=== PATIENT | female | born 1980 | race Caucasian/White ===

== ENCOUNTER 2016-06-06 10:05 | Emergency (ER) | payer OTHER ==
[2016-06-06] MEDS ORDERED: LORazepam 2 MG/ML VIAL (J2060) As Ordered ONE (10:49)
[2016-06-06 11:18] LABS: MEAN CORPUSCULAR HEMOGLOBIN 31.7 pg (27.0-33.0); MEAN CORPUSCULAR HGB CONC 33.8 g/dl (32.0-36.5); MEAN CORPUSCULAR VOLUME 93.8 fl (80.0-96.0); RED CELL DISTRIBUTION WIDTH 13.2 % (11.5-14.5); WHITE BLOOD COUNT 15.2 K/mm3 (4.0-10.0)
[2016-06-06 11:32] LABS: CONTROL LINE HCG INT CTR LINE PRESENT
[2016-06-06 11:39] LABS: AMPHETAMINES LEVEL URINE NEGATIVE (NEGATIVE); BENZODIAZEPINES URINE NEGATIVE (NEGATIVE); COCAINE METABOLITE URINE NEGATIVE (NEGATIVE); CONTROL LINE INT CTR LINE PRESENT; METHADONE URINE NEGATIVE (NEGATIVE); OPIATES URINE NEGATIVE (NEGATIVE); TRICYCLIC ANTIDEPRESS URINE NEGATIVE (NEGATIVE)
[2016-06-06 11:48] LABS: ALBUMIN 4.3 GM/DL (3.2-5.2); ALBUMIN/GLOBULIN RATIO 1.26 (1.00-1.93); ALKALINE PHOSPHATASE 66 U/L (45-117); ALT/SGPT 20 U/L (12-78); ANION GAP 12 MEQ/L (8-16); AST/SGOT 19 U/L (15-37); BILIRUBIN,DIRECT < 0.1 MG/DL (0.0-0.2); BILIRUBIN,TOTAL 0.2 MG/DL (0.2-1.0); BLOOD UREA NITROGEN 15 MG/DL (7-18); CALCIUM LEVEL 8.6 MG/DL (8.5-10.1); CARBON DIOXIDE LEVEL 24 MEQ/L (21-32); CHLORIDE LEVEL 109 MEQ/L (98-107); CREATININE FOR GFR 0.84 MG/DL (0.55-1.02); GLOMERULAR FILTRATION RATE > 60.0 (>60); GLUCOSE, FASTING 88 MG/DL (70-105); SODIUM LEVEL 145 MEQ/L (136-145); TOTAL PROTEIN 7.7 GM/DL (6.4-8.2)
[2016-06-06] MEDS ORDERED: NICOTINE 21MG/24HR 1 EA TRANSDERMAL As Ordered ONE (11:58)
--- NOTE | 2016-06-06 15:59 | EDDOCDS ---
Nurse's Notes [facility] Name: Chayo Weems Age: 36 yrs Sex: Female : 1980 Arrival Date: 06/06/2016 Time: 10:05 Bed 4 Private MD: SMITH Alberts Diagnosis: Alcohol abuse with intoxication Presentation: 06/06 10:10 Presenting complaint: EMS states: found by passer by sitting in vehicle in parking lot, jjr altered LOC, pt reports drinking whiskey since approx 0530 am and has had 2 doses of gabapentin, FSBS 110. Adult Sepsis Screening: Patient has new or worsening altered mentation (1 point). Patient's respiratory rate is less than 22. Systolic blood pressure is greater than 100. Patient has a qSOFA score of 1- Negative Sepsis Screen. Suicide/Homicide risk assessment- Unable to assess, the patient has an altered level of consciousness. Status: Patient is not a office services representative or dependent. Transition of care: patient was not received from another setting of care. 10:10 Acuity: MARTINA Level 3 jjr 10:10 Method Of Arrival: Ambulance jjr Triage Assessment: 11:21 General: Appears in no apparent distress, Behavior is restless. Pain: Denies pain. Pt jjr Declines HIV testing. Neurological: Level of Consciousness is awake, obeys commands, Cribbing Setter are equal bilaterally Moves all extremities. Speech is slurred. MARGIN ANALYST: 10:18 LMP N/A - Irregular menses jjr Historical: - Allergies: no known allergies; - Home Meds: 1. gabapentin 800 mg Oral tab qid (Last dose: 06/06/2016 07:00) 2. cetirizine 10 mg oral tab 1 tab once daily - PMHx: Anxiety; Seizures; Seasonal Allergies; - PSHx: Cholecystectomy; Appendectomy; - Social history: Smoking status: Patient uses tobacco products, current every day smoker. No barriers to communication noted, The patient speaks fluent Maori. - : The pt / caregiver states he / she is not on anticoagulants. Home medication list is obtained from the patient. - Exposure Risk Screening:: None identified. Screenin:08 Fall Risk. jjr 12:10 Screening information is obtained from family members. Fall risk: At risk due to jjr apparent cognitive impairment, The following interventions are performed due to a positive Fall Risk Screen: added to special handling. Assistance ADL's: requires no assistance with activities of daily living. Abuse/DV Screen: The patient / caregiver reports he/she is: not in a situation that causes fear, pain or injury. Nutritional screening: No deficits noted. Advance Directives: There is no active DNR order. home support is adequate. Assessment: 11:23 General: pt stood up pulling monitor leads off and proceeded to walk towards then jjr ran down manriquez ending at shut ambulance bay doors, pt assisted back to room by Douglas and Heidi, pt continues to make statements about leaving department. Cardiovascular: Rhythm is sinus rhythm. Respiratory: No deficits noted. Derm: No deficits noted. 11:53 General:. jjr 12:09 General: prior to falling asleep pt removed saline lock from left hand, provider aware, jjr verified 2 current medications. Cardiovascular: Rhythm is sinus tachycardia. Respiratory: Airway is patent Respiratory effort is even, unlabored, Respiratory pattern is regular. Derm: Skin is pink, warm & dry. 12:11 General: bed alarm placed on patient. jjr 12:40 General: Appears to be sleeping. Cardiovascular: Rhythm is sinus rhythm. Respiratory: jjr Airway is patent Respiratory effort is even, unlabored, Respiratory pattern is regular. 13:40 General: Appears to be sleeping. jjr 15:10 General: Appears in no apparent distress, found in manriquez by staff, returned to room, jjr pt's phoned for transportation home. Vital Signs: 10:13 Temp 98.3(TE); jjr 10:17 BP 137 / 100; Pulse 109; Temp 98.3; Pulse Ox 100% on R/A; Weight 63.5 kg; Height 5 ft. rn1 3 in. (160.02 cm); Pain 2/10; 10:28 BP 143 / 83 (auto/); jjr 10:29 Pulse 104 MON; Resp 18; jjr 12:01 BP 121 / 76 (auto/); jjr 12:02 Pulse 102 MON; Resp 18; jjr 12:22 BP 100 / 60 (auto/); jjr 12:22 Pulse 86 MON; Resp 18; jjr 12:54 BP 98 / 59 (auto/); jjr 12:54 Pulse 84 MON; jjr 13:24 BP 109 / 72 (auto/); dy 14:17 BP 101 / 60 (auto/); dy 15:46 BP 121 / 76; Pulse 102; Resp 18; Temp 98.4(O); Pulse Ox 96% on R/A; jjr 10:17 Body Mass Index 24.80 (63.50 kg, 160.02 cm) rn1 Vitals: 10:13 Log In Time N/A - ambulance arrival. jjr ED Course: 10:07 Patient visited by Karen Solis, Anesthesiology Teacher. lbd 10:07 SMITH Alberts is Private Physician. lbd 10:07 Chayo Singh, WILD is Primary Nurse. jjr 10:07 Patient moved to Waiting lbd 10:07 Patient moved to 4 jjr 10:10 Delbert Cosme MD is Attending Physician. br1 10:12 Triage Initiated jjr 10:26 Patient visited by Delbert Cosme MD. br1 11:22 The patient / caregiver is instructed regarding the plan of care and ED course. Cardiac jjr monitor on. Pulse ox on. NIBP on. 11:22 Missed attempts: 22 gauge X 1 in right hand, Bleeding controlled, band aid applied, jjr catheter tip intact. 11:22 Inserted saline lock: 22 gauge in left hand. Labs drawn. (by ED staff). Sent per order jjr to lab. Urine collected. Clean catch specimen. Urine specimen sent to lab. 11:25 Patient visited by Chayo Singh RN. jjr 11:27 Patient visited by Chayo Singh RN. jjr 11:51 patient is refusing ekg at the moment will try again in a bit after the medication has jbSteph had time to start working dr Ba pina. 11:52 Patient visited by Reva Lu PCA. jb5 12:07 Patient visited by Reva Lu PCA. jb5 12:07 patient is inclined and resting at the moment Nurse Chayo pina bed alarm is iin jb5 place. patient is comfortable. 12:08 Patient visited by Reva Lu PCA. jb5 12:11 Patient visited by Chayo Singh RN. jjr 12:24 Patient visited by Reva Lu PCA. jb5 12:24 Patient has correct armband on for positive identification. Placed in gown. Bed in low jb5 position. Call light in reach. Side rails up X2. Security observing. patient sleeping. 12:25 Patient visited by Reva Lu PCA. jb5 12:37 Patient visited by Reva Lu PCA. jb5 12:37 Verbal reassurance given. patient asleep. jb5 12:40 Patient visited by Chayo Singh RN. jjr 12:53 Patient visited by Reva Lu PCA. jb5 12:53 Security observing. patient asleep. jb5 13:08 Patient visited by Reva Lu PCA. jb5 13:08 Security observing. obtained EKG while patient was asleep. jb5 13:08 EKG done. (by ED staff). Reviewed by Delbert Cosme MD. jb5 13:24 Property removed, inventory done, secured in belongings bag- placed in locked locker. dpm Placed in locker 7. unknown who changed pt. Inventory was done 3 hours after pt was changed. belongings were left at charge nurse until nurse brought property back. 13:29 patient woke up ripping all leads off her and said she feels weird is now curling up jb5 into a ball on the bed nurse Chayo pina . 13:30 Property secured in secure belongings bag, Secure bag Number [id number], placed in ED safe.dpm 13:36 Patient visited by Reva Lu PCA. jb5 13:40 Security observing. patient asleep. jb5 13:41 Patient visited by Reva Lu PCA. jb5 13:48 Patient visited by Reva Lu PCA. jb5 14:14 Patient visited by Reva Lu PCA. jb5 14:15 Patient visited by Reva Lu PCA. jb5 14:34 Patient visited by Reva Lu PCA. jb5 14:34 Patient visited by Reva Lu PCA. jb5 14:34 Security observing. patient asleep. jb5 14:50 Patient visited by Luis Cheek RN. dy 14:52 Security observing. patient turned over and is asleep again. jb5 14:53 Patient visited by Reva Lu PCA. jb5 15:13 Patient visited by Chayo Singh RN. jjr 15:21 Patient visited by Reva Lu PCA. jb5 15:21 Diet tray given. PO fluids given. jb5 15:45 Patient visited by Reva Lu PCA. jb5 15:45 in with patient. jb5 15:46 Patient visited by Reva Lu PCA. jb5 15:48 [facility] is Referral Physician. br1 15:51 Patient name changed from Chayo\S\\S\Weems\S\ to Chayo\S\ \S\Weems. EDMS 15:52 [facility] Payment Agreement was scanned into MyEve[employer] and attached to record. zo 15:58 No procedures done that require assistance. jjr Restraints: 11:26 Restraint order obtained from Chayo Singh RN jjr 11:26 Implementation: The following less restrictive methods were implemented: calming interaction with one-on-one intervention, Physician assessed patient at 11:00. The patient was given an explanation of the restraint protocol, Restraints applied at 11:05 Patient was restrained with chemical restraint, Restraints were applied because patient is a danger to self. 11:26 Notification of restraint use: ED physician, Charge Nurse. 11:26 Vital Signs: See Trend VS for complete VS information 15:58 Patient was given chemical restraint. No order to discontinue required. jjr Administered Medications: 10:52 Drug: LORazepam 2 mg [lorazepam 2 mg/mL injection solution (1 mL)] Route: IM; Site: jjr right deltoid; 11:21 Drug: NS 0.9% 1000 ml [sodium chloride 0.9 % intravenous solution] Route: IV; Rate: 150 jjr mL/hr; Site: left hand; Order Results: Lab Order: Acetaminophen Level; SPEC'M 06/06/16 11:08 Test: ACETAMINOPHEN LEVEL; Value: < 2.0; Range: 10.0-30.0; Abnormal: Below low normal; Units: UG/ML; Status: F Lab Order: Basic Metabolic Profile; SPEC'M 06/06/16 11:08 Test: GLUCOSE, FASTING; Value: 88; Range: 70-105; Units: MG/DL; Status: F Test: BLOOD UREA NITROGEN; Value: 15; Range: 7-18; Units: MG/DL; Status: F Test: CREATININE FOR GFR; Value: 0.84; Range: 0.55-1.02; Units: MG/DL; Status: F Test: SODIUM LEVEL; Range: 136-145; Units: MEQ/L; Status: I Test: POTASSIUM SERUM; Range: 3.5-5.1; Units: MEQ/L; Status: I Test: CHLORIDE LEVEL; Range: 98-107; Units: MEQ/L; Status: I Test: CARBON DIOXIDE LEVEL; Range: 21-32; Units: MEQ/L; Status: I Test: ANION GAP; Range: 8-16; Units: MEQ/L; Status: I Test: CALCIUM LEVEL; Range: 8.5-10.1; Units: MG/DL; Status: I Test: GLOMERULAR FILTRATION RATE; Value: > 60.0; Range: >60; Status: F Test: SODIUM LEVEL; Value: 145; Range: 136-145; Units: MEQ/L; Status: F Test: POTASSIUM SERUM; Value: 4.0; Range: 3.5-5.1; Units: MEQ/L; Status: F Test: CHLORIDE LEVEL; Value: 109; Range: 98-107; Abnormal: Above high normal; Units: MEQ/L; Status: F Test: CARBON DIOXIDE LEVEL; Value: 24; Range: 21-32; Units: MEQ/L; Status: F Test: ANION GAP; Value: 12; Range: 8-16; Units: MEQ/L; Status: F Test: CALCIUM LEVEL; Value: 8.6; Range: 8.5-10.1; Units: MG/DL; Status: F Test Note: ; Units are mL/min/1.73 m2 Chronic Kidney Disease Staging per NKF: Stage I & II GFR >=60 Normal to Mildly Decreased Stage III GFR 30-59 Moderately Decreased Stage IV GFR 15-29 Severely Decreased Stage V GFR <15 Very Little GFR Left ESRD GFR <15 on C2 TACTICAL ANALYSIS TECHNICIAN Lab Order: Complete Blood Count; SPEC'M 06/06/16 11:08 Test: WHITE BLOOD COUNT; Value: 15.2; Range: 4.0-10.0; Abnormal: Above high normal; Units: K/mm3; Status: F Test: RED BLOOD COUNT; Value: 4.23; Range: 4.00-5.40; Units: M/mm3; Status: F Test: HEMOGLOBIN; Value: 13.4; Range: 12.0-16.0; Units: g/dl; Status: F Test: HEMATOCRIT; Value: 39.7; Range: 36.0-47.0; Units: %; Status: F Test: MEAN CORPUSCULAR VOLUME; Value: 93.8; Range: 80.0-96.0; Units: fl; Status: F Test: MEAN CORPUSCULAR HEMOGLOBIN; Value: 31.7; Range: 27.0-33.0; Units: pg; Status: F Test: MEAN CORPUSCULAR HGB CONC; Value: 33.8; Range: 32.0-36.5; Units: g/dl; Status: F Test: RED CELL DISTRIBUTION WIDTH; Value: 13.2; Range: 11.5-14.5; Units: %; Status: F Test: PLATELET COUNT, AUTOMATED; Value: 449; Range: 150-450; Units: k/mm3; Status: F Lab Order: Drug Eval Toxicology ED Only; SPEC'M 06/06/16 11:08 Test: AMPHETAMINES LEVEL URINE; Value: NEGATIVE; Range: NEGATIVE; Status: F Test: BARBITURATES URINE; Value: NEGATIVE; Range: NEGATIVE; Status: F Test: BENZODIAZEPINES URINE; Value: NEGATIVE; Range: NEGATIVE; Status: F Test: CANNABINOIDS URINE; Value: NEGATIVE; Range: NEGATIVE; Status: F Test: COCAINE METABOLITE URINE; Value: NEGATIVE; Range: NEGATIVE; Status: F Test: METHADONE URINE; Value: NEGATIVE; Range: NEGATIVE; Status: F Test: OPIATES URINE; Value: NEGATIVE; Range: NEGATIVE; Status: F Test: TRICYCLIC ANTIDEPRESS URINE; Value: NEGATIVE; Range: NEGATIVE; Status: F Test Note: ; ALL PRESUMPTIVE POSITIVE FINDINGS ARE UNCONFIRMED NORMAL VALUES THRESHOLD IN NG/ML AMPHETAMINES 1000 METHAMPHETAMINES 1000 BARBITURATES 300 BENZODIAZEPINES 300 CANNABINOIDS (THC) 50 COCAINE METABOLITE 300 METHADONE 300 OPIATES 300 PHENCYCLIDINE 25 TRICYCLIC ANTIDEPRESSANTS 1000 RESULTS ARE FOR MEDICAL PURPOSES ONLY. ALL URINE SPECIMENS WILL BE SAVED FOR 3 DAYS. IF CONFIRMATION OF A PRESUMPTIVE POSTIVE SCREEN RESULT IS DESIRED, CALL CHEMISTRY ([phone]) AND REQUEST URINE TO BE SENT TO REFERENCE LAB. FOR A LIST OF CLOSELY RELATED COMPOUNDS PLEASE CALL THE LAB. Lab Order: Ethyl Alcohol (ethanol); SPEC'M 06/06/16 11:08 Test: ETHYL ALCOHOL (ETHANOL); Value: 0.403; Range: 0.000-0.010; Abnormal: Above high normal; Units: %; Status: F Lab Order: HCG,Serum Qualitative; SPEC'M 06/06/16 11:08 Test: HCG, SERUM QUALITATIVE; Value: NEGATIVE; Range: NEGATIVE; Status: F Lab Order: Liver Profile; SPEC' 06/06/16 11:08 Test: AST/SGOT; Value: 19; Range: 15-37; Units: U/L; Status: F Test: ALT/SGPT; Value: 20; Range: 12-78; Units: U/L; Status: F Test: ALKALINE PHOSPHATASE; Value: 66; Range: 45-117; Units: U/L; Status: F Test: BILIRUBIN,TOTAL; Value: 0.2; Range: 0.2-1.0; Units: MG/DL; Status: F Test: BILIRUBIN,DIRECT; Value: < 0.1; Range: 0.0-0.2; Units: MG/DL; Status: F Test: TOTAL PROTEIN; Value: 7.7; Range: 6.4-8.2; Units: GM/DL; Status: F Test: ALBUMIN; Value: 4.3; Range: 3.2-5.2; Units: GM/DL; Status: F Test: ALBUMIN/GLOBULIN RATIO; Value: 1.26; Range: 1.00-1.93; Status: F Lab Order: Salicylate Level; SPEC' 06/06/16 11:08 Test: SALICYLATE LEVEL; Value: 2.2; Range: 5.0-30.0; Abnormal: Below low normal; Units: MG/DL; Status: F Lab Order: Thyroid Stimulating Hormone; SPEC'M 06/06/16 11:08 Test: THYROID STIMULATING HORMONE; Value: 1.070; Range: 0.358-3.740; Units: uIU/ML; Status: F Outcome: 15:48 Discharge ordered by Provider. br1 15:57 Discharge Assessment: patient administered narcotics - no. The following High Risk jjr Discharge criteria are identified: Yes, PFS involved. Discharged to home ambulatory, with significant other. Condition: stable. Discharge instructions given to patient, significant other, Instructed on discharge instructions, follow up and referral plans. Demonstrated understanding of instructions. No special radiology studies were completed. 15:58 Patient left the ED. [facility] Signatures: Dispatcher [employer] EDMS Karen Solis, Anesthesiology Teacher Unit lbd Luis Cheek, WILD RN Reva Francois, MUSIC PROFESSIONALS MUSIC PROFESSIONALS jb5 Dionisio Lemus Brian, MD MD br1 Chayo Singh RN RN Ezequiel Astudillo dpm, Robert rn1 Corrections: (The following items were deleted from the chart) 10:13 10:10 Presenting complaint: EMS states: found by passer by sitting in vehicle in [facility] parking lot, altered LOC, pt reports drinking whiskey since approx 0530 am and has had 2 doses of gabapentin [facility] MTDD
--- NOTE | 2016-06-06 15:59 | EDDOCDS ---
Physician Documentation [facility] Name: Chayo Weems Age: 36 yrs Sex: Female : 1980 Arrival Date: 06/06/2016 Time: 10:05 Bed 4 Private MD: SMITH Alberts Disposition: 06/06/16 15:48 Discharged to Home/Self Care. Impression: Alcohol abuse with intoxication. - Condition is Stable. - Discharge Instructions: Alcohol Intoxication. - Medication Reconciliation, Local Pharmacy Hours form. - Follow up: SMITH Alberts; When: 2 - 3 days; Reason: Recheck today's complaints. - Problem is new. - Symptoms have improved. - Notes: You were seen in the ED for altered mental status and were found to be intoxicated. You may return home in the care of your . Call your doctor to arrange recheck this week. Refrain from alcohol in the future. Return to the ED for any pain, worsening confusion, loss of consciousness, trouble breathing, or any other concerns. Historical: - Allergies: no known allergies; - Home Meds: 1. gabapentin 800 mg Oral tab qid (Last dose: 06/06/2016 07:00) 2. cetirizine 10 mg oral tab 1 tab once daily - PMHx: Anxiety; Seizures; Seasonal Allergies; - PSHx: Cholecystectomy; Appendectomy; - Social history: Smoking status: Patient uses tobacco products, current every day smoker. No barriers to communication noted, The patient speaks fluent Greenlandic. - : The pt / caregiver states he / she is not on anticoagulants. Home medication list is obtained from the patient. - Exposure Risk Screening:: None identified. 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 3 in. (160.02 cm); Pain 2/10; 10:28 BP 143 / 83 (auto/); jjr 10:29 Pulse 104 MON; Resp 18; jjr 12:01 BP 121 / 76 (auto/); jjr 12:02 Pulse 102 MON; Resp 18; jjr 12:22 BP 100 / 60 (auto/); jjr 12:22 Pulse 86 MON; Resp 18; jjr 12:54 BP 98 / 59 (auto/); jjr 12:54 Pulse 84 MON; jjr 13:24 BP 109 / 72 (auto/); dy 14:17 BP 101 / 60 (auto/); dy 15:46 BP 121 / 76; Pulse 102; Resp 18; Temp 98.4(O); Pulse Ox 96% on R/A; jjr 10:17 Body Mass Index 24.80 (63.50 kg, 160.02 cm) rn1 MDM: 10:26 Consult PFS/PSA/Small Engine Technician ordered. br1 10:26 Consult PFS/PSA/Small Engine Technician: Patient's case requires discussion with on-call br1 Psychiatrist ordered. 10:26 PSA/PFS to call Nursing Experimental Rocketsled Mechanic, to enter patient data on [place] Safe Act if patient br1 involuntarily admitted or transferred for SI or HI ordered. 10:26 Confirm accurate psychiatric medication list and times of last dosage ordered. br1 10:26 Detain Pt Until Medically/PFS Cleared ordered. br1 10:26 IV Saline Lock ordered. br1 10:27 Misc. Nursing Order ordered. br1 10:27 Recheck B/P ordered. br1 10:27 Marble Ceiling Installer/Pulse Ox/q 30 min VS ordered. br1 10:27 NS 0.9% 1000 ml IV at 150 mL/hr continuous ordered. br1 10:28 Acetaminophen Level Ordered. EDMS 10:28 Basic Metabolic Profile Ordered. EDMS 10:28 Complete Blood Count Ordered. EDMS 10:28 Drug Eval Toxicology ED Only Ordered. EDMS 10:28 Ethyl Alcohol (ethanol) Ordered. EDMS 10:28 HCG,Serum Qualitative Ordered. EDMS 10:28 Liver Profile Ordered. EDMS 10:28 Salicylate Level Ordered. EDMS 10:28 Thyroid Stimulating Hormone Ordered. EDMS 10:28 ECG WITH READING ER PHYS+CARDIAG ordered. EDMS 10:49 LORazepam 2 mg IM once; prn agitation ordered. br1 10:50 Restraints, Adult: Chemical - Meds as ordered (poses imminent danger of interfering br1 with medical interventions). May use manual restraints to ensure safe admin. of meds. Pt. monitoring for min. of 2 hrs per RN policy. ordered. 14:22 Acetaminophen Level Reviewed. br1 14:22 Basic Metabolic Profile Reviewed. br1 14:22 Complete Blood Count Reviewed. br1 14:22 Ethyl Alcohol (ethanol) Reviewed. br1 14:22 Salicylate Level Reviewed. br1 14:22 Drug Eval Toxicology ED Only Reviewed. br1 14:22 HCG,Serum Qualitative Reviewed. br1 14:22 Liver Profile Reviewed. br1 14:22 Thyroid Stimulating Hormone Reviewed. br1 14:24 Recheck B/P ordered. br1 15:45 PSA/PFS to call Nursing Experimental Rocketsled Mechanic, to enter patient data [place] Safe [place] if patient jjr involuntarily admitted or transferred for SI or HI complete. 15:45 Consult PFS/PSA/Small Engine Technician: Patient's case requires discussion with on-call jjr Psychiatrist complete. 15:46 Consult PFS/PSA/Small Engine Technician complete. jjr 15:52 Financial registration complete. zo 15:52 [facility] Payment Agreement was scanned into [employer] and attached to record. zo Administered Medications: 10:52 Drug: LORazepam 2 mg [lorazepam 2 mg/mL injection solution (1 mL)] Route: IM; Site: jjr right deltoid; 11:21 Drug: NS 0.9% 1000 ml [sodium chloride 0.9 % intravenous solution] Route: IV; Rate: 150 jjr mL/hr; Site: left hand; Signatures: Dispatcher [employer] Dionisio Benedict Brian, MD MD br1 Chyao Singh RN RN jjr The chart was reviewed and I authenticate all verbal orders and agree with the evaluation and treatment provided.Attachments: 15:52 [facility] Payment Agreement zo MTDD
--- NOTE | 2016-06-07 08:07 | ECGEPIP ---
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
--- NOTE | 2016-06-08 16:59 | EDDOCDS ---
Nurse's Notes [facility] Name: Pavan Weems Age: 36 yrs Sex: Female : 1980 Arrival Date: 06/06/2016 Time: 10:05 Bed 4 Private MD: SMITH Alberts Diagnosis: Alcohol abuse with intoxication Presentation: 06/06 10:10 Presenting complaint: EMS states: found by passer by sitting in vehicle in parking lot, jjr altered LOC, pt reports drinking whiskey since approx 0530 am and has had 2 doses of gabapentin, FSBS 110. Adult Sepsis Screening: Patient has new or worsening altered mentation (1 point). Patient's respiratory rate is less than 22. Systolic blood pressure is greater than 100. Patient has a qSOFA score of 1- Negative Sepsis Screen. Suicide/Homicide risk assessment- Unable to assess, the patient has an altered level of consciousness. Status: Patient is not a surgical services asst or dependent. Transition of care: patient was not received from another setting of care. 10:10 Acuity: MARTINA Level 3 jjr 10:10 Method Of Arrival: Ambulance jjr Triage Assessment: 11:21 General: Appears in no apparent distress, Behavior is restless. Pain: Denies pain. Pt jjr Declines HIV testing. Neurological: Level of Consciousness is awake, obeys commands, Microbiology Manager are equal bilaterally Moves all extremities. Speech is slurred. DECONTAMINATOR: 10:18 LMP N/A - Irregular menses jjr Historical: - Allergies: no known allergies; - Home Meds: 1. gabapentin 800 mg Oral tab qid (Last dose: 06/06/2016 07:00) 2. cetirizine 10 mg oral tab 1 tab once daily - PMHx: Anxiety; Seizures; Seasonal Allergies; - PSHx: Cholecystectomy; Appendectomy; - Social history: Smoking status: Patient uses tobacco products, current every day smoker. No barriers to communication noted, The patient speaks fluent Irish. - : The pt / caregiver states he / she is not on anticoagulants. Home medication list is obtained from the patient. - Exposure Risk Screening:: None identified. Screenin:08 Fall Risk. jjr 12:10 Screening information is obtained from family members. Fall risk: At risk due to jjr apparent cognitive impairment, The following interventions are performed due to a positive Fall Risk Screen: added to special handling. Assistance ADL's: requires no assistance with activities of daily living. Abuse/DV Screen: The patient / caregiver reports he/she is: not in a situation that causes fear, pain or injury. Nutritional screening: No deficits noted. Advance Directives: There is no active DNR order. home support is adequate. Assessment: 11:23 General: pt stood up pulling monitor leads off and proceeded to walk towards then jjr ran down manriquez ending at shut ambulance bay doors, pt assisted back to room by Douglas and Heidi, pt continues to make statements about leaving department. Cardiovascular: Rhythm is sinus rhythm. Respiratory: No deficits noted. Derm: No deficits noted. 11:53 General:. jjr 12:09 General: prior to falling asleep pt removed saline lock from left hand, provider aware, jjr verified 2 current medications. Cardiovascular: Rhythm is sinus tachycardia. Respiratory: Airway is patent Respiratory effort is even, unlabored, Respiratory pattern is regular. Derm: Skin is pink, warm & dry. 12:11 General: bed alarm placed on patient. jjr 12:40 General: Appears to be sleeping. Cardiovascular: Rhythm is sinus rhythm. Respiratory: jjr Airway is patent Respiratory effort is even, unlabored, Respiratory pattern is regular. 13:40 General: Appears to be sleeping. jjr 15:10 General: Appears in no apparent distress, found in manriquez by staff, returned to room, jjr pt's phoned for transportation home. Vital Signs: 10:13 Temp 98.3(TE); jjr 10:17 BP 137 / 100; Pulse 109; Temp 98.3; Pulse Ox 100% on R/A; Weight 63.5 kg; Height 5 ft. rn1 3 in. (160.02 cm); Pain 2/10; 10:28 BP 143 / 83 (auto/); jjr 10:29 Pulse 104 MON; Resp 18; jjr 12:01 BP 121 / 76 (auto/); jjr 12:02 Pulse 102 MON; Resp 18; jjr 12:22 BP 100 / 60 (auto/); jjr 12:22 Pulse 86 MON; Resp 18; jjr 12:54 BP 98 / 59 (auto/); jjr 12:54 Pulse 84 MON; jjr 13:24 BP 109 / 72 (auto/); dy 14:17 BP 101 / 60 (auto/); dy 15:46 BP 121 / 76; Pulse 102; Resp 18; Temp 98.4(O); Pulse Ox 96% on R/A; jjr 10:17 Body Mass Index 24.80 (63.50 kg, 160.02 cm) rn1 Vitals: 10:13 Log In Time N/A - ambulance arrival. jjr ED Course: 10:07 Patient visited by Karen Solis, Industrial Organization Manager. lbd 10:07 SMITH Alberts is Private Physician. lbd 10:07 Pavan Singh, WILD is Primary Nurse. jjr 10:07 Patient moved to Waiting lbd 10:07 Patient moved to 4 jjr 10:10 Lenka Cosme MD is Attending Physician. br1 10:12 Triage Initiated jjr 10:26 Patient visited by Lenka Cosme MD. br1 11:22 The patient / caregiver is instructed regarding the plan of care and ED course. Cardiac jjr monitor on. Pulse ox on. NIBP on. 11:22 Missed attempts: 22 gauge X 1 in right hand, Bleeding controlled, band aid applied, jjr catheter tip intact. 11:22 Inserted saline lock: 22 gauge in left hand. Labs drawn. (by ED staff). Sent per order jjr to lab. Urine collected. Clean catch specimen. Urine specimen sent to lab. 11:25 Patient visited by Pavan Singh RN. jjr 11:27 Patient visited by Pavan Singh RN. jjr 11:51 patient is refusing ekg at the moment will try again in a bit after the medication has jbSteph had time to start working dr Ba pina. 11:52 Patient visited by Reva Lu PCA. jb5 12:07 Patient visited by Reva Lu PCA. jb5 12:07 patient is inclined and resting at the moment Nurse Pavan pina bed alarm is iin jb5 place. patient is comfortable. 12:08 Patient visited by Reva Lu PCA. jb5 12:11 Patient visited by Pavan Singh RN. jjr 12:24 Patient visited by Reva Lu PCA. jb5 12:24 Patient has correct armband on for positive identification. Placed in gown. Bed in low jb5 position. Call light in reach. Side rails up X2. Security observing. patient sleeping. 12:25 Patient visited by Reva Lu PCA. jb5 12:37 Patient visited by Reva Lu PCA. jb5 12:37 Verbal reassurance given. patient asleep. jb5 12:40 Patient visited by Pavan Singh RN. jjr 12:53 Patient visited by Reva Lu PCA. jb5 12:53 Security observing. patient asleep. jb5 13:08 Patient visited by Reva Lu PCA. jb5 13:08 Security observing. obtained EKG while patient was asleep. jb5 13:08 EKG done. (by ED staff). Reviewed by Lenka Cosme MD. jb5 13:24 Property removed, inventory done, secured in belongings bag- placed in locked locker. dpm Placed in locker 7. unknown who changed pt. Inventory was done 3 hours after pt was changed. belongings were left at charge nurse until nurse brought property back. 13:29 patient woke up ripping all leads off her and said she feels weird is now curling up jb5 into a ball on the bed nurse Pavan pina . 13:30 Property secured in secure belongings bag, Secure bag Number [id number], placed in ED safe.dpm 13:36 Patient visited by Reva Lu PCA. jb5 13:40 Security observing. patient asleep. jb5 13:41 Patient visited by Reva Lu PCA. jb5 13:48 Patient visited by Reva Lu PCA. jb5 14:14 Patient visited by Reva Lu PCA. jb5 14:15 Patient visited by Reva Lu PCA. jb5 14:34 Patient visited by Reva Lu PCA. jb5 14:34 Patient visited by Reva Lu PCA. jb5 14:34 Security observing. patient asleep. jb5 14:50 Patient visited by Luis Cheek RN. dy 14:52 Security observing. patient turned over and is asleep again. jb5 14:53 Patient visited by Reva Lu PCA. jb5 15:13 Patient visited by Pavan Singh RN. jjr 15:21 Patient visited by Reva Lu PCA. jb5 15:21 Diet tray given. PO fluids given. jb5 15:45 Patient visited by Reva uL PCA. jb5 15:45 in with patient. jb5 15:46 Patient visited by Reva Lu PCA. jb5 15:48 [facility] is Referral Physician. br1 15:51 Patient name changed from Pavan\S\\S\Weems\S\ to Pavan\S\ \S\Weems. EDMS 15:52 [facility] Payment Agreement was scanned into MEDAppleTree[employer] and attached to record. zo 15:58 No procedures done that require assistance. jjr 06/07 08:41 EKG-ADULT Returned. EDMS 10:09 T-Sheet-- Draft Copy was scanned into [employer] and attached to record. gb 10:10 ECG/EKG was scanned into [employer] and attached to record. gb Restraints: 06/06 11:26 Restraint order obtained from Pavan Singh RN jjr Implementation: The following less restrictive methods were implemented: calming interaction with one-on-one intervention, Physician assessed patient at 11:00. The patient was given an explanation of the restraint protocol, Restraints applied at 11:05 Patient was restrained with chemical restraint, Restraints were applied because patient is a danger to self. Notification of restraint use: ED physician, Charge Nurse. Vital Signs: See Trend VS for complete VS information 15:58 Patient was given chemical restraint. No order to discontinue required. jjr Administered Medications: 10:52 Drug: LORazepam 2 mg [lorazepam 2 mg/mL injection solution (1 mL)] Route: IM; Site: jjr right deltoid; 11:21 Drug: NS 0.9% 1000 ml [sodium chloride 0.9 % intravenous solution] Route: IV; Rate: 150 jjr mL/hr; Site: left hand; Order Results: Lab Order: Acetaminophen Level; SPEC'M 06/06/16 11:08 Test: ACETAMINOPHEN LEVEL; Value: < 2.0; Range: 10.0-30.0; Abnormal: Below low normal; Units: UG/ML; Status: F Lab Order: Basic Metabolic Profile; SPEC'M 06/06/16 11:08 Test: GLUCOSE, FASTING; Value: 88; Range: 70-105; Units: MG/DL; Status: F Test: BLOOD UREA NITROGEN; Value: 15; Range: 7-18; Units: MG/DL; Status: F Test: CREATININE FOR GFR; Value: 0.84; Range: 0.55-1.02; Units: MG/DL; Status: F Test: SODIUM LEVEL; Range: 136-145; Units: MEQ/L; Status: I Test: POTASSIUM SERUM; Range: 3.5-5.1; Units: MEQ/L; Status: I Test: CHLORIDE LEVEL; Range: 98-107; Units: MEQ/L; Status: I Test: CARBON DIOXIDE LEVEL; Range: 21-32; Units: MEQ/L; Status: I Test: ANION GAP; Range: 8-16; Units: MEQ/L; Status: I Test: CALCIUM LEVEL; Range: 8.5-10.1; Units: MG/DL; Status: I Test: GLOMERULAR FILTRATION RATE; Value: > 60.0; Range: >60; Status: F Test: SODIUM LEVEL; Value: 145; Range: 136-145; Units: MEQ/L; Status: F Test: POTASSIUM SERUM; Value: 4.0; Range: 3.5-5.1; Units: MEQ/L; Status: F Test: CHLORIDE LEVEL; Value: 109; Range: 98-107; Abnormal: Above high normal; Units: MEQ/L; Status: F Test: CARBON DIOXIDE LEVEL; Value: 24; Range: 21-32; Units: MEQ/L; Status: F Test: ANION GAP; Value: 12; Range: 8-16; Units: MEQ/L; Status: F Test: CALCIUM LEVEL; Value: 8.6; Range: 8.5-10.1; Units: MG/DL; Status: F Test Note: ; Units are mL/min/1.73 m2 Chronic Kidney Disease Staging per NKF: Stage I & II GFR >=60 Normal to Mildly Decreased Stage III GFR 30-59 Moderately Decreased Stage IV GFR 15-29 Severely Decreased Stage V GFR <15 Very Little GFR Left ESRD GFR <15 on RESIDENTIAL LEASING AGENT Lab Order: Complete Blood Count; SPEC'M 06/06/16 11:08 Test: WHITE BLOOD COUNT; Value: 15.2; Range: 4.0-10.0; Abnormal: Above high normal; Units: K/mm3; Status: F Test: RED BLOOD COUNT; Value: 4.23; Range: 4.00-5.40; Units: M/mm3; Status: F Test: HEMOGLOBIN; Value: 13.4; Range: 12.0-16.0; Units: g/dl; Status: F Test: HEMATOCRIT; Value: 39.7; Range: 36.0-47.0; Units: %; Status: F Test: MEAN CORPUSCULAR VOLUME; Value: 93.8; Range: 80.0-96.0; Units: fl; Status: F Test: MEAN CORPUSCULAR HEMOGLOBIN; Value: 31.7; Range: 27.0-33.0; Units: pg; Status: F Test: MEAN CORPUSCULAR HGB CONC; Value: 33.8; Range: 32.0-36.5; Units: g/dl; Status: F Test: RED CELL DISTRIBUTION WIDTH; Value: 13.2; Range: 11.5-14.5; Units: %; Status: F Test: PLATELET COUNT, AUTOMATED; Value: 449; Range: 150-450; Units: k/mm3; Status: F Lab Order: Drug Eval Toxicology ED Only; SPEC'M 06/06/16 11:08 Test: AMPHETAMINES LEVEL URINE; Value: NEGATIVE; Range: NEGATIVE; Status: F Test: BARBITURATES URINE; Value: NEGATIVE; Range: NEGATIVE; Status: F Test: BENZODIAZEPINES URINE; Value: NEGATIVE; Range: NEGATIVE; Status: F Test: CANNABINOIDS URINE; Value: NEGATIVE; Range: NEGATIVE; Status: F Test: COCAINE METABOLITE URINE; Value: NEGATIVE; Range: NEGATIVE; Status: F Test: METHADONE URINE; Value: NEGATIVE; Range: NEGATIVE; Status: F Test: OPIATES URINE; Value: NEGATIVE; Range: NEGATIVE; Status: F Test: TRICYCLIC ANTIDEPRESS URINE; Value: NEGATIVE; Range: NEGATIVE; Status: F Test Note: ; ALL PRESUMPTIVE POSITIVE FINDINGS ARE UNCONFIRMED NORMAL VALUES THRESHOLD IN NG/ML AMPHETAMINES 1000 METHAMPHETAMINES 1000 BARBITURATES 300 BENZODIAZEPINES 300 CANNABINOIDS (THC) 50 COCAINE METABOLITE 300 METHADONE 300 OPIATES 300 PHENCYCLIDINE 25 TRICYCLIC ANTIDEPRESSANTS 1000 RESULTS ARE FOR MEDICAL PURPOSES ONLY. ALL URINE SPECIMENS WILL BE SAVED FOR 3 DAYS. IF CONFIRMATION OF A PRESUMPTIVE POSTIVE SCREEN RESULT IS DESIRED, CALL CHEMISTRY ([phone]) AND REQUEST URINE TO BE SENT TO REFERENCE LAB. FOR A LIST OF CLOSELY RELATED COMPOUNDS PLEASE CALL THE LAB. Lab Order: Ethyl Alcohol (ethanol); SPEC06/06/16 11:08 Test: ETHYL ALCOHOL (ETHANOL); Value: 0.403; Range: 0.000-0.010; Abnormal: Above high normal; Units: %; Status: F Lab Order: HCG,Serum Qualitative; 06/06/16 11:08 Test: HCG, SERUM QUALITATIVE; Value: NEGATIVE; Range: NEGATIVE; Status: F Lab Order: Liver Profile; [facility] 11:08 Test: AST/SGOT; Value: 19; Range: 15-37; Units: U/L; Status: F Test: ALT/SGPT; Value: 20; Range: 12-78; Units: U/L; Status: F Test: ALKALINE PHOSPHATASE; Value: 66; Range: 45-117; Units: U/L; Status: F Test: BILIRUBIN,TOTAL; Value: 0.2; Range: 0.2-1.0; Units: MG/DL; Status: F Test: BILIRUBIN,DIRECT; Value: < 0.1; Range: 0.0-0.2; Units: MG/DL; Status: F Test: TOTAL PROTEIN; Value: 7.7; Range: 6.4-8.2; Units: GM/DL; Status: F Test: ALBUMIN; Value: 4.3; Range: 3.2-5.2; Units: GM/DL; Status: F Test: ALBUMIN/GLOBULIN RATIO; Value: 1.26; Range: 1.00-1.93; Status: F Lab Order: Salicylate Level; [facility] 11:08 Test: SALICYLATE LEVEL; Value: 2.2; Range: 5.0-30.0; Abnormal: Below low normal; Units: MG/DL; Status: F Lab Order: Thyroid Stimulating Hormone; 06/06/16 11:08 Test: THYROID STIMULATING HORMONE; Value: 1.070; Range: 0.358-3.740; Units: uIU/ML; Status: F Radiology Order: EKG-ADULT Test: EKG-ADULT REASON FOR EXAMINATION: dysrhythmia; Stationary ECG Study; [facility] - ED; ; Test Date: 2016-06-06; Pat Name: PAVAN WEEMS Department:; Room: -; Gender: F 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 br1 15:57 Discharge Assessment: patient administered narcotics - no. The following High Risk jjr Discharge criteria are identified: Yes, PFS involved. Discharged to home ambulatory, with significant other. Condition: stable. Discharge instructions given to patient, significant other, Instructed on discharge instructions, follow up and referral plans. Demonstrated understanding of instructions. No special radiology studies were completed. 15:58 Patient left the ED. jr Signatures: Dispatcher [employer] EDMS Karen Solis, Industrial Organization Manager Unit lbd Jane García, Reg Reg Luis Faulkner, RN RN Reva Francois, TUFTING MACHINE OPERATOR SINGLE NEEDLE TUFTING MACHINE OPERATOR SINGLE NEEDLE jb5 Dionisio Lemus Brian, MD MD br1 Pavan Singh, RN RN jjEzequiel Astudillo dpm, Robert rn1 Corrections: (The following items were deleted from the chart) 10:13 10:10 Presenting complaint: EMS states: found by passer by sitting in vehicle in jr parking lot, altered LOC, pt reports drinking whiskey since approx 0530 am and has had 2 doses of gabapentin jjr Chart Complete MTDD
--- NOTE | 2016-06-08 16:59 | EDDOCDS ---
Physician Documentation [facility] Name: Chayo Weems Age: 36 yrs Sex: Female : 1980 Arrival Date: 06/06/2016 Time: 10:05 Bed 4 Private MD: SMITH Alberts Disposition: 06/06/16 15:48 Discharged to Home/Self Care. Impression: Alcohol abuse with intoxication. - Condition is Stable. - Discharge Instructions: Alcohol Intoxication. - Medication Reconciliation, Local Pharmacy Hours form. - Follow up: SMITH Alberts; When: 2 - 3 days; Reason: Recheck today's complaints. - Problem is new. - Symptoms have improved. - Notes: You were seen in the ED for altered mental status and were found to be intoxicated. You may return home in the care of your . Call your doctor to arrange recheck this week. Refrain from alcohol in the future. Return to the ED for any pain, worsening confusion, loss of consciousness, trouble breathing, or any other concerns. Historical: - Allergies: no known allergies; - Home Meds: 1. gabapentin 800 mg Oral tab qid (Last dose: 06/06/2016 07:00) 2. cetirizine 10 mg oral tab 1 tab once daily - PMHx: Anxiety; Seizures; Seasonal Allergies; - PSHx: Cholecystectomy; Appendectomy; - Social history: Smoking status: Patient uses tobacco products, current every day smoker. No barriers to communication noted, The patient speaks fluent Divehi. - : The pt / caregiver states he / she is not on anticoagulants. Home medication list is obtained from the patient. - Exposure Risk Screening:: None identified. PUTTY MAKER: 06/06 10:18 LMP N/A - Irregular menses jjr Vital Signs: 10:13 Temp 98.3(TE); jjr 10:17 BP 137 / 100; Pulse 109; Temp 98.3; Pulse Ox 100% on R/A; Weight 63.5 kg / 139.99 lbs; rn1 Height 5 ft. 3 in. (160.02 cm); Pain 2/10; 10:28 BP 143 / 83 (auto/); jjr 10:29 Pulse 104 MON; Resp 18; jjr 12:01 BP 121 / 76 (auto/); jjr 12:02 Pulse 102 MON; Resp 18; jjr 12:22 BP 100 / 60 (auto/); jjr 12:22 Pulse 86 MON; Resp 18; jjr 12:54 BP 98 / 59 (auto/); jjr 12:54 Pulse 84 MON; jjr 13:24 BP 109 / 72 (auto/); dy 14:17 BP 101 / 60 (auto/); dy 15:46 BP 121 / 76; Pulse 102; Resp 18; Temp 98.4(O); Pulse Ox 96% on R/A; jjr 10:17 Body Mass Index 24.80 (63.50 kg, 160.02 cm) rn1 MDM: 10:26 Consult PFS/PSA/Mold Yard Supervisor ordered. br1 10:26 Consult PFS/PSA/Mold Yard Supervisor: Patient's case requires discussion with on-call br1 Psychiatrist ordered. 10:26 PSA/PFS to call Nursing Twist Packer, to enter patient data on [place] Safe Act if patient br1 involuntarily admitted or transferred for SI or HI ordered. 10:26 Confirm accurate psychiatric medication list and times of last dosage ordered. br1 10:26 Detain Pt Until Medically/PFS Cleared ordered. br1 10:26 IV Saline Lock ordered. br1 10:27 Misc. Nursing Order ordered. br1 10:27 Recheck B/P ordered. br1 10:27 Clay Preparation Supervisor/Pulse Ox/q 30 min VS ordered. br1 10:27 NS 0.9% 1000 ml IV at 150 mL/hr continuous ordered. br1 10:28 Acetaminophen Level Ordered. EDMS 10:28 Basic Metabolic Profile Ordered. EDMS 10:28 Complete Blood Count Ordered. EDMS 10:28 Drug Eval Toxicology ED Only Ordered. EDMS 10:28 Ethyl Alcohol (ethanol) Ordered. EDMS 10:28 HCG,Serum Qualitative Ordered. EDMS 10:28 Liver Profile Ordered. EDMS 10:28 Salicylate Level Ordered. EDMS 10:28 Thyroid Stimulating Hormone Ordered. EDMS 10:28 ECG WITH READING ER PHYS+CARDIAG ordered. EDMS 10:49 LORazepam 2 mg IM once; prn agitation ordered. br1 10:50 Restraints, Adult: Chemical - Meds as ordered (poses imminent danger of interfering br1 with medical interventions). May use manual restraints to ensure safe admin. of meds. Pt. monitoring for min. of 2 hrs per RN policy. ordered. 14:22 Acetaminophen Level Reviewed. br1 14:22 Basic Metabolic Profile Reviewed. br1 14:22 Complete Blood Count Reviewed. br1 14:22 Ethyl Alcohol (ethanol) Reviewed. br1 14:22 Salicylate Level Reviewed. br1 14:22 Drug Eval Toxicology ED Only Reviewed. br1 14:22 HCG,Serum Qualitative Reviewed. br1 14:22 Liver Profile Reviewed. br1 14:22 Thyroid Stimulating Hormone Reviewed. br1 14:24 Recheck B/P ordered. br1 15:45 PSA/PFS to call Nursing Twist Packer, to enter patient data [place] Safe [place] if patient jjr involuntarily admitted or transferred for SI or HI complete. 15:45 Consult PFS/PSA/Mold Yard Supervisor: Patient's case requires discussion with on-call jjr Psychiatrist complete. 15:46 Consult PFS/PSA/Mold Yard Supervisor complete. jjr 15:52 Financial registration complete. zo 15:52 [facility] Payment Agreement was scanned into [employer] and attached to record. zo 06/07 10:09 T-Sheet-- Draft Copy was scanned into [employer] and attached to record. gb 10:10 ECG/EKG was scanned into [employer] and attached to record. gb Administered Medications: 06/06 10:52 Drug: LORazepam 2 mg [lorazepam 2 mg/mL injection solution (1 mL)] Route: IM; Site: jjr right deltoid; 11:21 Drug: NS 0.9% 1000 ml [sodium chloride 0.9 % intravenous solution] Route: IV; Rate: 150 jjr mL/hr; Site: left hand; Signatures: Dispatcher [employer] EDMS Jane García, Reg Reg gb Dionisio Lemus Brian, MD MD br1 Chayo Singh, RN RN jjr The chart was reviewed and I authenticate all verbal orders and agree with the evaluation and treatment provided.Attachments: 15:52 [facility] Payment Agreement zo 06/07 10:09 T-Sheet-- Draft Copy gb 10:10 ECG/EKG gb Chart Complete MTDD
--- NOTE | 2016-06-08 16:59 | EDDOCDS ---
Physician Documentation [facility] Name: Chayo Weems Age: 36 yrs Sex: Female : 1980 Arrival Date: 06/06/2016 Time: 10:05 Bed 4 Private MD: SMITH Alberts Disposition: 06/06/16 15:48 Discharged to Home/Self Care. Impression: Alcohol abuse with intoxication. - Condition is Stable. - Discharge Instructions: Alcohol Intoxication. - Medication Reconciliation, Local Pharmacy Hours form. - Follow up: SMITH Alberts; When: 2 - 3 days; Reason: Recheck today's complaints. - Problem is new. - Symptoms have improved. - Notes: You were seen in the ED for altered mental status and were found to be intoxicated. You may return home in the care of your . Call your doctor to arrange recheck this week. Refrain from alcohol in the future. Return to the ED for any pain, worsening confusion, loss of consciousness, trouble breathing, or any other concerns. Historical: - Allergies: no known allergies; - Home Meds: 1. gabapentin 800 mg Oral tab qid (Last dose: 06/06/2016 07:00) 2. cetirizine 10 mg oral tab 1 tab once daily - PMHx: Anxiety; Seizures; Seasonal Allergies; - PSHx: Cholecystectomy; Appendectomy; - Social history: Smoking status: Patient uses tobacco products, current every day smoker. No barriers to communication noted, The patient speaks fluent Kiswahili. - : The pt / caregiver states he / she is not on anticoagulants. Home medication list is obtained from the patient. - Exposure Risk Screening:: None identified. 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 3 in. (160.02 cm); Pain 2/10; 10:28 BP 143 / 83 (auto/); jjr 10:29 Pulse 104 MON; Resp 18; jjr 12:01 BP 121 / 76 (auto/); jjr 12:02 Pulse 102 MON; Resp 18; jjr 12:22 BP 100 / 60 (auto/); jjr 12:22 Pulse 86 MON; Resp 18; jjr 12:54 BP 98 / 59 (auto/); jjr 12:54 Pulse 84 MON; jjr 13:24 BP 109 / 72 (auto/); dy 14:17 BP 101 / 60 (auto/); dy 15:46 BP 121 / 76; Pulse 102; Resp 18; Temp 98.4(O); Pulse Ox 96% on R/A; jjr 10:17 Body Mass Index 24.80 (63.50 kg, 160.02 cm) rn1 MDM: 10:26 Consult PFS/PSA/Front End Specialist ordered. br1 10:26 Consult PFS/PSA/Front End Specialist: Patient's case requires discussion with on-call br1 Psychiatrist ordered. 10:26 PSA/PFS to call Nursing Substance Abuse Clinician, to enter patient data on [place] Safe Act if patient br1 involuntarily admitted or transferred for SI or HI ordered. 10:26 Confirm accurate psychiatric medication list and times of last dosage ordered. br1 10:26 Detain Pt Until Medically/PFS Cleared ordered. br1 10:26 IV Saline Lock ordered. br1 10:27 Misc. Nursing Order ordered. br1 10:27 Recheck B/P ordered. br1 10:27 Boat Operator/Pulse Ox/q 30 min VS ordered. br1 10:27 NS 0.9% 1000 ml IV at 150 mL/hr continuous ordered. br1 10:28 Acetaminophen Level Ordered. EDMS 10:28 Basic Metabolic Profile Ordered. EDMS 10:28 Complete Blood Count Ordered. EDMS 10:28 Drug Eval Toxicology ED Only Ordered. EDMS 10:28 Ethyl Alcohol (ethanol) Ordered. EDMS 10:28 HCG,Serum Qualitative Ordered. EDMS 10:28 Liver Profile Ordered. EDMS 10:28 Salicylate Level Ordered. EDMS 10:28 Thyroid Stimulating Hormone Ordered. EDMS 10:28 ECG WITH READING ER PHYS+CARDIAG ordered. EDMS 10:49 LORazepam 2 mg IM once; prn agitation ordered. br1 10:50 Restraints, Adult: Chemical - Meds as ordered (poses imminent danger of interfering br1 with medical interventions). May use manual restraints to ensure safe admin. of meds. Pt. monitoring for min. of 2 hrs per RN policy. ordered. 14:22 Acetaminophen Level Reviewed. br1 14:22 Basic Metabolic Profile Reviewed. br1 14:22 Complete Blood Count Reviewed. br1 14:22 Ethyl Alcohol (ethanol) Reviewed. br1 14:22 Salicylate Level Reviewed. br1 14:22 Drug Eval Toxicology ED Only Reviewed. br1 14:22 HCG,Serum Qualitative Reviewed. br1 14:22 Liver Profile Reviewed. br1 14:22 Thyroid Stimulating Hormone Reviewed. br1 14:24 Recheck B/P ordered. br1 15:45 PSA/PFS to call Nursing Substance Abuse Clinician, to enter patient data [place] Safe [place] if patient jjr involuntarily admitted or transferred for SI or HI complete. 15:45 Consult PFS/PSA/Front End Specialist: Patient's case requires discussion with on-call jjr Psychiatrist complete. 15:46 Consult PFS/PSA/Front End Specialist complete. jjr 15:52 Financial registration complete. zo 15:52 [facility] Payment Agreement was scanned into [email or web address] and attached to record. zo 06/07 10:09 T-Sheet-- Draft Copy was scanned into [email or web address] and attached to record. gb 10:10 ECG/EKG was scanned into [email or web address] and attached to record. gb Administered Medications: 06/06 10:52 Drug: LORazepam 2 mg [lorazepam 2 mg/mL injection solution (1 mL)] Route: IM; Site: jjr right deltoid; 11:21 Drug: NS 0.9% 1000 ml [sodium chloride 0.9 % intravenous solution] Route: IV; Rate: 150 jjr mL/hr; Site: left hand; Signatures: Dispatcher [employer] EDMS Jane García, Reg Reg gb Dionisio Lemus Brian, MD MD br1 Chayo Singh, RN RN jjr The chart was reviewed and I authenticate all verbal orders and agree with the evaluation and treatment provided.Attachments: 15:52 [facility] Payment Agreement zo 06/07 10:09 T-Sheet-- Draft Copy gb 10:10 ECG/EKG gb Chart Complete MTDD
== END 2016-06-06 15:58 | disposition home or self-care (01) ==
LOC: M ED 10:05
DX: F10.129 Alcohol abuse with intoxication, unspecified (principal); F41.9 Anxiety disorder, unspecified; R56.9 Unspecified convulsions; J30.2 Other seasonal allergic rhinitis; Z79.899 Other long term (current) drug therapy; F17.210 Nicotine dependence, cigarettes, uncomplicated
CPT/HCPCS: 36415; 80048; 80076; 80306; 84443; 84703; 85027; 93005; 93041; 96372; 99285; G0480; J2060

== ENCOUNTER 2016-10-26 17:34 | Emergency (ER) | payer OTHER ==
[~2016-10-26] VITALS: Ht 160 cm; Wt 55.3 kg
[~2016-10-26 17:34] MED LIST: ALLE180T33 PO; GABA-283 PO; SIME1CAP PO; ZOFR4TAB3 PO
[2016-10-26 18:52] LABS: MEAN CORPUSCULAR HEMOGLOBIN 32.6 pg (27.0-33.0); MEAN CORPUSCULAR HGB CONC 34.4 g/dl (32.0-36.5); MEAN CORPUSCULAR VOLUME 94.5 fl (80.0-96.0); RED CELL DISTRIBUTION WIDTH 14.3 % (11.5-14.5); WHITE BLOOD COUNT 7.6 K/mm3 (4.0-10.0)
[2016-10-26 18:55] LABS: CONTROL LINE HCG INT CTR LINE PRESENT
[2016-10-26 19:10] LABS: ALBUMIN 3.9 GM/DL (3.2-5.2); ALBUMIN/GLOBULIN RATIO 1.34 (1.00-1.93); ALKALINE PHOSPHATASE 56 U/L (45-117); ALT/SGPT 26 U/L (12-78); ANION GAP 12 MEQ/L (8-16); AST/SGOT 39 U/L (15-37); BILIRUBIN,DIRECT 0.1 MG/DL (0.0-0.2); BILIRUBIN,TOTAL 0.3 MG/DL (0.2-1.0); BLOOD UREA NITROGEN 10 MG/DL (7-18); CALCIUM LEVEL 8.7 MG/DL (8.5-10.1); CARBON DIOXIDE LEVEL 24 MEQ/L (21-32); CHLORIDE LEVEL 107 MEQ/L (98-107); CREATININE FOR GFR 0.82 MG/DL (0.55-1.02); GLOMERULAR FILTRATION RATE > 60.0 (>60); GLUCOSE, FASTING 136 MG/DL (70-105); POTASSIUM SERUM 3.8 MEQ/L (3.5-5.1); SODIUM LEVEL 143 MEQ/L (136-145); TOTAL PROTEIN 6.8 GM/DL (6.4-8.2)
[2016-10-26 19:13] LABS: METHADONE URINE NEGATIVE (NEGATIVE)
[2016-10-27 01:51] VITALS: BP 134/91
== END 2016-10-27 01:52 | disposition home or self-care (01) ==
LOC: M ED 20:23
DX: F10.129 Alcohol abuse with intoxication, unspecified (principal); F91.9 Conduct disorder, unspecified; F32.9 Major depressive disorder, single episode, unspecified; F41.9 Anxiety disorder, unspecified; F43.10 Post-traumatic stress disorder, unspecified; Z79.899 Other long term (current) drug therapy
CPT/HCPCS: 36415; 80048; 80076; 80306; 84443; 84703; 85027; 99284; G0480

== ENCOUNTER 2016-12-03 13:51 | Emergency (ER) | payer OTHER ==
[~2016-12-03] VITALS: Ht 160 cm; Wt 55.0 kg
[2016-12-03] MEDS ORDERED: ALEV220C2 PO (14:02)
--- NOTE | 2016-12-03 15:05 | REP ---
LEFT FOREARM, TWO VIEWS: There is no evidence of an acute fracture, dislocation or intrinsic bone disease. IMPRESSION: No fracture or dislocation. Signed by Sushant Maza MD 12/03/2016 04:08 P
--- NOTE | 2016-12-03 15:21 | REP ---
CT Head without contrast HISTORY: Trauma COMPARISON: None There is no intraparenchymal hemorrhage, acute infarct, mass or midline shift. The ventricular system is normal in appearance. There is no extra cerebral collection. There is no fracture. The visualized sinuses are clear. Soft tissue swelling is present overlying the parietal bones at the vertex. IMPRESSION: There is no intracranial lesion. Signed by Alfred Reynolds MD 12/03/2016 03:12 P
[2016-12-03] MEDS ORDERED: IBUP-1022 PO (16:07)
--- NOTE | 2016-12-03 16:08 | REP ---
MAXILLOFACIAL CT WITHOUT CONTRAST: Minimal mucosal thickening is present in the ethmoid maxillary and left sphenoid sinuses. The remaining sinuses are clear. The osteomeatal units are patent. The middle and inferior nasal turbinates are partially paradoxical. There is mild deviation of the nasal septum to the left. The cribriform plate, medial long of the orbits and optic canals are intact . The carotid canals form a segment of the posterolateral long of the sphenoid sinus. The sphenoid sinus septum inserts into the right internal carotid canal wall. There is no fracture. IMPRESSION: Sinus mucosal thickening as described above. Signed by Alfred Reynolds MD 12/03/2016 04:12 P
[2016-12-03 16:45] VITALS: BP 118/72
== END 2016-12-03 16:45 | disposition home or self-care (01) ==
LOC: M ED 13:51
DX: S50.12XA Contusion of left forearm, initial encounter (principal); S00.91XA Abrasion of unspecified part of head, initial encounter; W08.XXXA Fall from other furniture, initial encounter; Y92.018 Other place in single-family (private) house as the place of occurrence of the external cause; Y99.9 Unspecified external cause status; Y93.9 Activity, unspecified

== ENCOUNTER 2017-11-03 12:12 | Emergency (ER) | payer OTHER ==
[2017-11-03] MEDS: LORazepam 2 MG TAB PO (12:59)
[2017-11-03 13:20] LABS: HEMATOCRIT 36.2 % (36.0-47.0); HEMOGLOBIN 12.7 g/dl (12.0-15.5); MEAN CORPUSCULAR HEMOGLOBIN 31.1 pg (27.0-33.0); MEAN CORPUSCULAR HGB CONC 35.1 g/dl (32.0-36.5); MEAN CORPUSCULAR VOLUME 88.7 fl (80.0-96.0); PLATELET COUNT, AUTOMATED 289 10^3/uL (150-450); RED BLOOD COUNT 4.08 10^6/uL (4.00-5.40); WHITE BLOOD COUNT 12.2 10^3/uL (4.0-10.0)
[2017-11-03 13:23] LABS: CONTROL LINE HCG INT CTR LINE PRESENT; HCG, SERUM QUALITATIVE NEGATIVE (NEGATIVE)
[2017-11-03 13:32] LABS: AMPHETAMINES LEVEL URINE NEGATIVE (NEGATIVE); BARBITURATES URINE NEGATIVE (NEGATIVE); BENZODIAZEPINES URINE NEGATIVE (NEGATIVE); CANNABINOIDS URINE NEGATIVE (NEGATIVE); COCAINE METABOLITE URINE NEGATIVE (NEGATIVE); METHADONE URINE NEGATIVE (NEGATIVE); OPIATES URINE NEGATIVE (NEGATIVE); PHENCYCLIDINE URINE NEGATIVE (NEGATIVE)
[2017-11-03 13:40] LABS: ALBUMIN 4.2 GM/DL (3.2-5.2); ALBUMIN/GLOBULIN RATIO 1.35 (1.00-1.93); ALKALINE PHOSPHATASE 75 U/L (45-117); ALT/SGPT 35 U/L (12-78); ANION GAP 14 MEQ/L (8-16); AST/SGOT 32 U/L (7-37); BILIRUBIN,DIRECT 0.2 MG/DL (0.0-0.2); BILIRUBIN,TOTAL 0.6 MG/DL (0.2-1.0); BLOOD UREA NITROGEN 4 MG/DL (7-18); CALCIUM LEVEL 9.1 MG/DL (8.5-10.1); CARBON DIOXIDE LEVEL 22 MEQ/L (21-32); CHLORIDE LEVEL 102 MEQ/L (98-107); CREATININE FOR GFR 0.65 MG/DL (0.55-1.30); GLOMERULAR FILTRATION RATE > 60.0 (>60); GLUCOSE, FASTING 93 MG/DL (70-100); POTASSIUM SERUM 3.8 MEQ/L (3.5-5.1); SALICYLATE LEVEL 3.1 MG/DL (5.0-30.0); SODIUM LEVEL 138 MEQ/L (136-145); THYROID STIMULATING HORMONE 0.893 uIU/ML (0.358-3.740); TOTAL PROTEIN 7.3 GM/DL (6.4-8.2)
[2017-11-03 13:43] LABS: ACETAMINOPHEN LEVEL < 2.0 UG/ML (10.0-30.0); ETHYL ALCOHOL (ETHANOL) < 0.003 % (0.000-0.010)
== END 2017-11-03 17:24 | disposition home or self-care (01) ==
LOC: M ED 12:12
DX: F41.9 Anxiety disorder, unspecified (principal); F17.200 Nicotine dependence, unspecified, uncomplicated; Z79.899 Other long term (current) drug therapy
CPT/HCPCS: G0480

== ENCOUNTER → 2017-12-14 | Outpatient (CLI) | payer OTHER | LOC: M OUTALCOH 09:41 | DX: Z13.9 Encounter for screening, unspecified (principal); F10.20 Alcohol dependence, uncomplicated ==

== ENCOUNTER 2018-01-20 09:55 | Outpatient (RCR) | payer OTHER | END 2018-02-14 | LOC: M OUTALCOH 09:55 | DX: F10.20 Alcohol dependence, uncomplicated (principal) ==

== ENCOUNTER 2018-02-18 14:00 | Outpatient (RCR) | payer OTHER | END 2018-03-17 | LOC: M OUTALCOH 02-23 10:00 | DX: F10.20 Alcohol dependence, uncomplicated (principal) ==

== ENCOUNTER 2018-03-19 09:25 | Outpatient (RCR) | payer OTHER | END 2018-04-16 | LOC: M OUTALCOH 09:25 | DX: F10.20 Alcohol dependence, uncomplicated (principal) ==

== ENCOUNTER → 2018-05-17 | Outpatient (RCR) | payer OTHER ==
[~2018-05-17] MED LIST changes: +ALEV220C2 PO; +CELE20TA PO; -GABA-283 PO; +GABA-845 PO; +IBUP-1022 PO; +ZOFR4TAB14 PO; -ZOFR4TAB3 PO
== END ==
LOC: M OUTALCOH 04-19 15:18
PROVIDERS: ATTEND Psychiatry & Neurology Psychiatry
DX: F10.20 Alcohol dependence, uncomplicated (principal)

== ENCOUNTER 2018-06-14 14:00 | Outpatient (RCR) | payer OTHER | END 2018-06-17 | LOC: M OUTALCOH 14:00 | PROVIDERS: ATTEND Psychiatry & Neurology Psychiatry | DX: F10.20 Alcohol dependence, uncomplicated (principal) ==

== ENCOUNTER 2018-06-20 16:01 | Emergency (ER) | payer OTHER ==
[~2018-06-20] VITALS: Ht 160 cm; Wt 63.6 kg
[2018-06-20] MEDS ORDERED: BUSP15TA47 (16:21)
[2018-06-20] MEDS ORDERED: NALT50TA4 (16:21)
[2018-06-20] MEDS ORDERED: FLUTISP (16:21)
[2018-06-20] MEDS ORDERED: ONDANSETRON 4 MG ORAL DISINTEGRATING TAB (Q0162 PER 1MG) PO ONE (16:30)
[2018-06-20 17:04] LABS: BASO # 0.1 10^3/uL (0.0-0.2); BASO % 1.1 % (0.0-1.0); EOS # 0.2 10^3/uL (0.0-0.50); HEMATOCRIT 40.3 % (36.0-47.0); HEMOGLOBIN 13.6 g/dl (12.0-15.5); LYMPH # 2.6 10^3/uL (1.5-4.5); LYMPH % 28.7 % (24.0-44.0); MEAN CORPUSCULAR HEMOGLOBIN 31.1 pg (27.0-33.0); MEAN CORPUSCULAR HGB CONC 33.7 g/dl (32.0-36.5); MONO # 0.5 10^3/uL (0.0-0.8); NEUTROPHILS # 5.5 10^3/uL (1.8-7.7); NEUTROPHILS % 61.9 % (36.0-66.0); PLATELET COUNT, AUTOMATED 375 10^3/uL (150-450); RED BLOOD COUNT 4.38 10^6/uL (4.00-5.40)
[2018-06-20 17:08] LABS: APPEARANCE, URINE CLEAR (CLEAR); BACTERIA, URINE AUTO NEGATIVE (NEGATIVE); BILIRUBIN, URINE AUTO NEGATIVE (NEGATIVE); BLOOD, URINE BLOOD NEGATIVE (NEGATIVE); COLOR, URINE STRAW (YELLOW); GLUCOSE, URINE (UA) AUTO NEGATIVE (NEGATIVE); KETONE, URINE AUTO NEGATIVE (NEGATIVE); LEUKOCYTE ESTERASE, URINE AUTO NEGATIVE (NEGATIVE); MUCUS, URINE SMALL (NEGATIVE); NITRITE, URINE AUTO NEGATIVE (NEGATIVE); PROTEIN, URINE AUTO NEGATIVE (NEGATIVE); RBC, URINE AUTO 1 /HPF (0-3); SPECIFIC GRAVITY URINE AUTO 1.004 (1.002-1.035); SQUAMOUS EPITHELIAL CELL UR AU 0 /HPF (0-6); UROBILINOGEN, URINE AUTO 0.2 mg/dL (0.0-2.0); WBC, URINE AUTO 0 /HPF (0-3)
[2018-06-20] MEDS ORDERED: GI COCKTAIL 50ML BTL(HYOSCYAMINE/MAALOX/LIDOCAINE VISCOUS)(1:3:1) PO ONE (17:15)
[2018-06-20 17:33] LABS: ALT/SGPT 17 U/L (12-78); BLOOD UREA NITROGEN 7 MG/DL (7-18); CALCIUM LEVEL 9.2 MG/DL (8.5-10.1); CARBON DIOXIDE LEVEL 30 MEQ/L (21-32); CHLORIDE LEVEL 104 MEQ/L (98-107); CREATININE FOR GFR 0.82 MG/DL (0.55-1.30); GLOMERULAR FILTRATION RATE > 60.0 (>60); GLUCOSE, FASTING 82 MG/DL (70-100); POTASSIUM SERUM 4.5 MEQ/L (3.5-5.1); SODIUM LEVEL 141 MEQ/L (136-145)
[2018-06-20 17:34] LABS: ALBUMIN 4.1 GM/DL (3.2-5.2); BILIRUBIN,DIRECT 0.1 MG/DL (0.0-0.2); BILIRUBIN,TOTAL 0.4 MG/DL (0.2-1.0); LIPASE 170 U/L (73-393); TOTAL PROTEIN 6.9 GM/DL (6.4-8.2)
[2018-06-20] MEDS ORDERED: PROT1TAB2 PO (18:19)
[2018-06-20] MEDS ORDERED: CARA1TAB6 PO (18:19)
[2018-06-20 18:26] VITALS: BP 96/54
[2018-06-20] MEDS ORDERED: SUCRALFATE 1 GM TAB PO ONE (18:30)
[2018-06-20] MEDS ORDERED: PANTOPRAZOLE 40MG TAB (PROTONIX) PO ONE (18:30)
--- NOTE | 2018-06-20 18:42 | REP ---
Clinical: Epigastric and abdominal pain. Technique: Upright view of the chest with supine and upright views of the abdomen and pelvis. Findings: Frontal upright view of the chest demonstrates no acute cardiopulmonary process or free air below the diaphragm to suspect pneumoperitoneum. Supine and upright views of the abdomen and pelvis demonstrate nonspecific bowel gas pattern without obstruction or perforation. No organomegaly. No abnormal calcifications. Skeletal structures normal for age. Prior cholecystectomy. The Impression: Nonspecific bowel gas pattern. Electronically Signed by Yang Lainez MD 06/20/2018 06:34 P
== END 2018-06-20 18:30 | disposition home or self-care (01) ==
LOC: M ED 16:01
DX: K29.70 Gastritis, unspecified, without bleeding (principal); R56.9 Unspecified convulsions; K92.9 Disease of digestive system, unspecified; F10.20 Alcohol dependence, uncomplicated; F41.9 Anxiety disorder, unspecified; F32.9 Major depressive disorder, single episode, unspecified; Z79.899 Other long term (current) drug therapy
CPT/HCPCS: 36415; 74021; 80048; 80076; 81001; 81025; 83690; 85025; 99284; Q0162

== ENCOUNTER 2018-07-05 09:30 | Outpatient (RCR) | payer OTHER ==
[~2018-07-05 09:30] MED LIST changes: +BUSP15TA47; +CARA1TAB6 PO; +FLUTISP; +NALT50TA4; +PROT1TAB2 PO
== END 2018-07-15 ==
LOC: M OUTALCOH 09:30
PROVIDERS: ATTEND Psychiatry & Neurology Psychiatry
DX: F10.20 Alcohol dependence, uncomplicated (principal)

== ENCOUNTER 2018-08-06 14:00 | Outpatient (RCR) | payer OTHER | END 2018-08-15 | LOC: M OUTALCOH 14:00 | PROVIDERS: ATTEND Psychiatry & Neurology Psychiatry | DX: F10.20 Alcohol dependence, uncomplicated (principal) ==

== ENCOUNTER 2018-09-01 18:43 | Emergency (ER) | payer OTHER ==
[~2018-09-01] VITALS: Ht 157.5 cm; Wt 67.3 kg
[2018-09-01] MEDS ORDERED: MULTIVITAMIN -ADULT INJECTION 10 ML, THIAMINE INJection 100 MG, FOLIC ACID 1 MG in NS 1... IV ONE (19:15)
[2018-09-01 19:38] LABS: BASO # 0.1 10^3/uL (0.0-0.2); BASO % 0.9 % (0.0-1.0); EOS # 0.1 10^3/uL (0.0-0.50); EOS % 0.9 % (0.0-3.0); HEMATOCRIT 37.8 % (36.0-47.0); HEMOGLOBIN 12.8 g/dl (12.0-15.5); LYMPH # 3.5 10^3/uL (1.5-4.5); LYMPH % 27.5 % (24.0-44.0); MEAN CORPUSCULAR HEMOGLOBIN 30.5 pg (27.0-33.0); MEAN CORPUSCULAR HGB CONC 33.9 g/dl (32.0-36.5); MEAN CORPUSCULAR VOLUME 90.2 fl (80.0-96.0); MONO # 0.5 10^3/uL (0.0-0.8); NEUTROPHILS # 8.4 10^3/uL (1.8-7.7); NEUTROPHILS % 66.4 % (36.0-66.0); PLATELET COUNT, AUTOMATED 392 10^3/uL (150-450); RED BLOOD COUNT 4.19 10^6/uL (4.00-5.40); WHITE BLOOD COUNT 12.7 10^3/uL (4.0-10.0)
[2018-09-01] MEDS ORDERED: PHENobarbital INJ 65 MG/ML VIAL (J2560) IV STA (19:58)
[2018-09-01 20:51] LABS: ALBUMIN 3.8 GM/DL (3.2-5.2); ALT/SGPT 33 U/L (12-78); BILIRUBIN,DIRECT < 0.1 MG/DL (0.0-0.2); BILIRUBIN,TOTAL 0.3 MG/DL (0.2-1.0); BLOOD UREA NITROGEN 9 MG/DL (7-18); CARBON DIOXIDE LEVEL 25 MEQ/L (21-32); CHLORIDE LEVEL 104 MEQ/L (98-107); CREATININE FOR GFR 0.84 MG/DL (0.55-1.30); ETHYL ALCOHOL (ETHANOL) 0.283 % (0.000-0.010); GLOMERULAR FILTRATION RATE > 60.0 (>60); GLUCOSE, FASTING 120 MG/DL (70-100); LIPASE 81 U/L (73-393); POTASSIUM SERUM 3.8 MEQ/L (3.5-5.1); SODIUM LEVEL 134 MEQ/L (136-145); TOTAL PROTEIN 7.7 GM/DL (6.4-8.2)
[2018-09-01 21:02] LABS: AMPHETAMINES LEVEL URINE NEGATIVE (NEGATIVE); BARBITURATES URINE NEGATIVE (NEGATIVE); BENZODIAZEPINES URINE NEGATIVE (NEGATIVE); CANNABINOIDS URINE NEGATIVE (NEGATIVE); COCAINE METABOLITE URINE NEGATIVE (NEGATIVE); METHADONE URINE NEGATIVE (NEGATIVE); OPIATES URINE NEGATIVE (NEGATIVE); PHENCYCLIDINE URINE NEGATIVE (NEGATIVE)
[2018-09-01 22:15] VITALS: BP 112/65
== END 2018-09-01 22:50 | disposition home or self-care (01) ==
LOC: M ED 18:43
DX: R25.1 Tremor, unspecified (principal); F10.10 Alcohol abuse, uncomplicated; F32.9 Major depressive disorder, single episode, unspecified; K29.70 Gastritis, unspecified, without bleeding; Z79.899 Other long term (current) drug therapy
CPT/HCPCS: 80048; 80076; 80307; 83690; 85025; 96365; 96366; 96375; 99284; G0480; J2560; J3411

== ENCOUNTER 2018-09-06 13:02 | Outpatient (RCR) | payer OTHER | END 2018-09-14 | LOC: M OUTALCOH 13:02 | PROVIDERS: ATTEND Psychiatry & Neurology Psychiatry | DX: F10.20 Alcohol dependence, uncomplicated (principal) ==

== ENCOUNTER 2018-10-04 14:00 | Outpatient (RCR) | payer OTHER | END 2018-10-15 | LOC: M OUTALCOH 14:00 | PROVIDERS: ATTEND Psychiatry & Neurology Psychiatry | DX: F10.20 Alcohol dependence, uncomplicated (principal) ==

== ENCOUNTER 2018-10-26 21:43 | Emergency (ER) | payer OTHER ==
[~2018-10-26] VITALS: Ht 160 cm; Wt 63.6 kg
[2018-10-26] MEDS ORDERED: BUSP30TA PO (23:31)
[2018-10-27] MEDS ORDERED: OXAZEPAM 15 MG CAP PO ONE (00:45)
[2018-10-27] MEDS ORDERED: NS 1,000 ML IV ONE (00:45)
[2018-10-27 03:03] VITALS: BP 111/70
== END 2018-10-27 04:11 | disposition home or self-care (01) ==
LOC: M ED 21:43
DX: F10.220 Alcohol dependence with intoxication, uncomplicated (principal); K27.9 Peptic ulcer, site unspecified, unspecified as acute or chronic, without hemorrhage or perforation; F32.9 Major depressive disorder, single episode, unspecified; Z79.899 Other long term (current) drug therapy
CPT/HCPCS: 96360; 99284; G0480

== ENCOUNTER 2018-11-09 14:00 | Outpatient (RCR) | payer OTHER ==
[~2018-11-09 14:00] MED LIST changes: +BUSP30TA PO
== END 2018-11-14 ==
LOC: M OUTALCOH 14:00
PROVIDERS: ATTEND Psychiatry & Neurology Psychiatry
DX: F10.20 Alcohol dependence, uncomplicated (principal)

== ENCOUNTER 2018-12-13 14:58 | Outpatient (RCR) | payer OTHER | END 2018-12-15 | LOC: M OUTALCOH 14:58 | PROVIDERS: ATTEND Psychiatry & Neurology Psychiatry | DX: F10.20 Alcohol dependence, uncomplicated (principal) ==

== ENCOUNTER → 2018-12-15 | Outpatient (CLI) | payer OTHER | LOC: M LAB 13:23 | PROVIDERS: ATTEND Psychiatry & Neurology Addiction Medicine | DX: F10.929 Alcohol use, unspecified with intoxication, unspecified (principal) ==

== ENCOUNTER 2019-01-02 17:05 | Emergency (ER) | payer OTHER ==
[~2019-01-02] VITALS: Ht 160 cm; Wt 66.8 kg
[2019-01-02 17:46] LABS: BASO # 0.1 10^3/uL (0.0-0.2); BASO % 0.6 % (0.0-1.0); EOS # 0.3 10^3/uL (0.0-0.50); EOS % 2.4 % (0.0-3.0); HEMATOCRIT 37.1 % (36.0-47.0); HEMOGLOBIN 12.5 g/dl (12.0-15.5); LYMPH % 24.6 % (24.0-44.0); MEAN CORPUSCULAR HEMOGLOBIN 30.8 pg (27.0-33.0); MEAN CORPUSCULAR HGB CONC 33.7 g/dl (32.0-36.5); MEAN CORPUSCULAR VOLUME 91.4 fl (80.0-96.0); MONO # 0.7 10^3/uL (0.0-0.8); MONO % 5.5 % (0.0-5.0); NEUTROPHILS % 66.6 % (36.0-66.0); PLATELET COUNT, AUTOMATED 415 10^3/uL (150-450); RED BLOOD COUNT 4.06 10^6/uL (4.00-5.40)
[2019-01-02 18:04] LABS: HCG, SERUM QUALITATIVE NEGATIVE (NEGATIVE)
[2019-01-02 18:09] LABS: ALBUMIN 3.8 GM/DL (3.2-5.2); ALT/SGPT 22 U/L (12-78); BILIRUBIN,DIRECT < 0.1 MG/DL (0.0-0.2); BILIRUBIN,TOTAL 0.2 MG/DL (0.2-1.0); BLOOD UREA NITROGEN 6 MG/DL (7-18); CARBON DIOXIDE LEVEL 27 MEQ/L (21-32); CHLORIDE LEVEL 107 MEQ/L (98-107); CREATININE FOR GFR 0.87 MG/DL (0.55-1.30); GLOMERULAR FILTRATION RATE > 60.0 (>60); GLUCOSE, FASTING 94 MG/DL (70-100); LIPASE 160 U/L (73-393); POTASSIUM SERUM 3.2 MEQ/L (3.5-5.1); SODIUM LEVEL 141 MEQ/L (136-145); TOTAL PROTEIN 7.1 GM/DL (6.4-8.2)
[2019-01-02] MEDS ORDERED: PANTOPRAZOLE 40MG TAB (PROTONIX) PO ONE (18:30)
[2019-01-02] MEDS ORDERED: SUCRALFATE 1 GM TAB PO ONE (18:30)
[2019-01-02] MEDS ORDERED: GI COCKTAIL 50ML BTL(HYOSCYAMINE/MAALOX/LIDOCAINE VISCOUS)(1:3:1) PO ONE (18:30)
[2019-01-02] MEDS ORDERED: ONDANSETRON 4 MG ORAL DISINTEGRATING TAB (Q0162 PER 1MG) PO ONE (18:30)
[2019-01-02 18:44] LABS: CK-MB VALUE MASS < 1.0 NG/ML (<3.6); CPK CREATINE PHOSPHOKINASE 114 U/L (26-192); MB/CK RELATIVE INDEX 0.88 (< OR =4); TROPONIN I < 0.02 NG/ML (< 0.10)
--- NOTE | 2019-01-02 19:34 | ECGEPIP ---
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
[2019-01-02] MEDS ORDERED: ZANT150T40 PO (20:04)
[2019-01-02] MEDS ORDERED: CARA1TAB6 PO (20:04)
[2019-01-02 20:11] VITALS: BP 121/73
--- NOTE | 2019-01-03 12:15 | REP ---
CHEST PA AND LATERAL: 01/02/2019 CLINICAL HISTORY: Epigastric pain, chest pressure. COMPARISON: Acute abdominal series 06/20/2018. FINDINGS: Two-views show the lungs well inflated and without pleural effusion, infiltrate, atelectasis, or mass. The heart, mediastinal and hilar contours, aorta, and airway intact. Bones unremarkable. There is no free air under the diaphragm. IMPRESSION: No acute cardiopulmonary change. Stable from 06/20/2018. Electronically Signed by Rashaun Sapp MD 01/03/2019 12:24 P
== END 2019-01-02 20:18 | disposition home or self-care (01) ==
LOC: M ED 17:05
DX: R10.13 Epigastric pain (principal); D72.829 Elevated white blood cell count, unspecified; R11.0 Nausea; Z79.899 Other long term (current) drug therapy; F17.210 Nicotine dependence, cigarettes, uncomplicated
CPT/HCPCS: 36415; 71046; 80048; 80076; 81001; 82550; 82553; 83690; 84484; 84703; 85025; 93005; 99284; Q0162

== ENCOUNTER 2019-01-13 16:00 | Outpatient (RCR) | payer OTHER ==
[~2019-01-13 16:00] MED LIST changes: +ZANT150T40 PO
== END 2019-01-15 ==
LOC: M OUTALCOH 16:00
PROVIDERS: ATTEND Psychiatry & Neurology Psychiatry
DX: F10.20 Alcohol dependence, uncomplicated (principal)

== ENCOUNTER → 2019-02-14 | Outpatient (RCR) | payer OTHER | LOC: M OUTALCOH 01-18 13:14 | PROVIDERS: ATTEND Psychiatry & Neurology Psychiatry | DX: F10.20 Alcohol dependence, uncomplicated (principal) ==

== ENCOUNTER 2019-03-18 10:30 | Emergency (ER) | payer OTHER ==
[~2019-03-18] VITALS: Ht 160 cm; Wt 67.3 kg
[2019-03-18] MEDS ORDERED: PANT20TA2 PO (10:38)
[2019-03-18] MEDS ORDERED: PANTOPRAZOLE 40MG INJ (PROTONIX) (C9113) IV ONE (11:00)
[2019-03-18] MEDS ORDERED: KETOROLAC 30 MG/ML VIAL (J1885) IV ONE (11:00)
[2019-03-18] MEDS ORDERED: ONDANSETRON 4MG/2ML VIAL (J2405) IV ONE (11:00)
[2019-03-18] MEDS ORDERED: NS 1,000 ML IV ONE (11:00)
[2019-03-18 11:33] LABS: BASO % 0.6 % (0.0-1.0); EOS # 0.2 10^3/uL (0.0-0.5); EOS % 3.4 % (0.0-3.0); HEMATOCRIT 39.4 % (36.0-47.0); HEMOGLOBIN 13.1 g/dl (12.0-15.5); LYMPH # 1.6 10^3/uL (1.5-5.0); LYMPH % 23.6 % (24.0-44.0); MEAN CORPUSCULAR HEMOGLOBIN 31.7 pg (27.0-33.0); MEAN CORPUSCULAR HGB CONC 33.2 g/dl (32.0-36.5); MEAN CORPUSCULAR VOLUME 95.4 fl (80.0-96.0); MONO # 0.6 10^3/uL (0.0-0.8); MONO % 8.3 % (0.0-5.0); NEUTROPHILS # 4.3 10^3/uL (1.5-8.5); NEUTROPHILS % 63.7 % (36.0-66.0); PLATELET COUNT, AUTOMATED 331 10^3/uL (150-450); RED BLOOD COUNT 4.13 10^6/uL (4.00-5.40); WHITE BLOOD COUNT 6.7 10^3/uL (4.0-10.0)
[2019-03-18] MEDS: GASTROGRAFIN SOLUTION 30ML PO SCH ×2 (11:35→11:48)
[2019-03-18 12:01] LABS: ALBUMIN 3.9 GM/DL (3.2-5.2); ALT/SGPT 31 U/L (12-78); BILIRUBIN,DIRECT < 0.1 MG/DL (0.0-0.2); BILIRUBIN,TOTAL 0.2 MG/DL (0.2-1.0); BLOOD UREA NITROGEN 6 MG/DL (7-18); CALCIUM LEVEL 9.4 MG/DL (8.5-10.1); CARBON DIOXIDE LEVEL 32 MEQ/L (21-32); CHLORIDE LEVEL 107 MEQ/L (98-107); ETHYL ALCOHOL (ETHANOL) < 0.003 % (0.000-0.010); GLOMERULAR FILTRATION RATE > 60.0 (>60); GLUCOSE, FASTING 103 MG/DL (70-100); LIPASE 150 U/L (73-393); POTASSIUM SERUM 4.8 MEQ/L (3.5-5.1); SODIUM LEVEL 142 MEQ/L (136-145); TOTAL PROTEIN 6.7 GM/DL (6.4-8.2)
[2019-03-18 12:32] LABS: AMPHETAMINES LEVEL URINE NEGATIVE (NEGATIVE); BARBITURATES URINE NEGATIVE (NEGATIVE); BENZODIAZEPINES URINE POSITIVE (NEGATIVE); CANNABINOIDS URINE POSITIVE (NEGATIVE); COCAINE METABOLITE URINE NEGATIVE (NEGATIVE); METHADONE URINE NEGATIVE (NEGATIVE); OPIATES URINE NEGATIVE (NEGATIVE); PHENCYCLIDINE URINE NEGATIVE (NEGATIVE)
[2019-03-18] MEDS ORDERED: ISOVUE-370 76% 100ML VIAL (Q9967) As Ordered ONE (12:47)
[2019-03-18 13:09] VITALS: BP 147/85
--- NOTE | 2019-03-18 13:14 | REP ---
Clinical: Epigastric pain. Technique: Axial contrast enhanced images from the lung bases to the pubic symphysis using oral (per protocol) and 100 ml Isovue 370 intravenous contrast material with coronal and sagittal re-formations. Findings: Lung bases are clear. Visualized heart and pericardium are normal. Liver, spleen, pancreas, bilateral adrenal glands and kidneys are normal. Evidence of prior cholecystectomy and appendectomy noted. There is no evidence for bowel obstruction or acute inflammatory process. Pelvis demonstrates normal bladder and age-appropriate uterus/adnexa. No ascites. No free air. No adenopathy. Abdominal aorta and vasculature appear normal. Musculoskeletal structures demonstrate bilateral L5 pars defects with grade 1 spondylolisthesis, endplate sclerosis and disc space narrowing. Impression: 1. No acute abdominopelvic pathology appreciated. 2. Evidence of prior cholecystectomy and appendectomy. 3. Chronic L5 spondylolysis with grade 1 spondylolisthesis. Electronically Signed by Yang Lainez MD 03/18/2019 01:06 P
[2019-03-18] MEDS ORDERED: SUCR1SS PO (13:39)
== END 2019-03-18 13:57 | disposition home or self-care (01) ==
LOC: M ED 10:30
DX: R10.13 Epigastric pain (principal); Z87.19 Personal history of other diseases of the digestive system; R56.9 Unspecified convulsions; F10.10 Alcohol abuse, uncomplicated; Z79.899 Other long term (current) drug therapy
CPT/HCPCS: 74177; 80048; 80076; 80307; 81001; 83690; 84702; 85025; 96374; 96375; 99284; C9113; G0480; J1885; J2405; Q9963; Q9967

== ENCOUNTER 2019-03-29 13:00 | Outpatient (RCR) | payer OTHER ==
[~2019-03-29 13:00] MED LIST changes: +PANT20TA2 PO; +SUCR1SS PO
== END 2019-04-16 ==
LOC: M OUTALCOH 13:00
PROVIDERS: ATTEND Psychiatry & Neurology Psychiatry
DX: F10.20 Alcohol dependence, uncomplicated (principal)

== ENCOUNTER → 2019-05-04 | Outpatient (REF) | payer OTHER | LOC: M SFHCLERA 12:54 | PROVIDERS: ATTEND Nurse Practitioner Family | DX: R68.89 Other general symptoms and signs (principal) ==

== ENCOUNTER 2019-05-17 14:15 | Emergency (ER) | payer OTHER ==
[~2019-05-17] VITALS: Ht 160 cm; Wt 69.7 kg
[2019-05-17 14:58] LABS: HEMATOCRIT 40.8 % (36.0-47.0); MEAN CORPUSCULAR HGB CONC 34.3 g/dl (32.0-36.5); MEAN CORPUSCULAR VOLUME 90.5 fl (80.0-96.0); PLATELET COUNT, AUTOMATED 475 10^3/uL (150-450); RED BLOOD COUNT 4.51 10^6/uL (4.00-5.40); WHITE BLOOD COUNT 6.7 10^3/uL (4.0-10.0)
[2019-05-17 15:19] LABS: HCG, SERUM QUALITATIVE NEGATIVE (NEGATIVE)
[2019-05-17 15:30] LABS: ACETAMINOPHEN LEVEL < 2.0 UG/ML (10.0-30.0); ALBUMIN 3.8 GM/DL (3.2-5.2); ALT/SGPT 26 U/L (12-78); BILIRUBIN,DIRECT < 0.1 MG/DL (0.0-0.2); BILIRUBIN,TOTAL 0.2 MG/DL (0.2-1.0); BLOOD UREA NITROGEN 8 MG/DL (7-18); CALCIUM LEVEL 8.5 MG/DL (8.5-10.1); CARBON DIOXIDE LEVEL 24 MEQ/L (21-32); CHLORIDE LEVEL 107 MEQ/L (98-107); CREATININE FOR GFR 0.68 MG/DL (0.55-1.30); ETHYL ALCOHOL (ETHANOL) 0.364 % (0.000-0.010); GLOMERULAR FILTRATION RATE > 60.0 (>60); GLUCOSE, FASTING 88 MG/DL (70-100); POTASSIUM SERUM 4.1 MEQ/L (3.5-5.1); SODIUM LEVEL 142 MEQ/L (136-145); THYROID STIMULATING HORMONE 0.628 uIU/ML (0.358-3.740); TOTAL PROTEIN 7.1 GM/DL (6.4-8.2)
[2019-05-17] MEDS ORDERED: haloperidoL 5 MG TAB PO STA (15:58)
[2019-05-17] MEDS ORDERED: LORazepam 2 MG/ML VIAL (J2060) IV STA ×2 (17:17→21:00)
[2019-05-17] MEDS ORDERED: LORazepam 2 MG/ML VIAL (J2060) As Ordered ONE (20:59)
[2019-05-17 23:00] LABS: AMPHETAMINES LEVEL URINE NEGATIVE (NEGATIVE); BARBITURATES URINE NEGATIVE (NEGATIVE); BENZODIAZEPINES URINE NEGATIVE (NEGATIVE); CANNABINOIDS URINE NEGATIVE (NEGATIVE); COCAINE METABOLITE URINE NEGATIVE (NEGATIVE); METHADONE URINE NEGATIVE (NEGATIVE); OPIATES URINE NEGATIVE (NEGATIVE); PHENCYCLIDINE URINE NEGATIVE (NEGATIVE)
[2019-05-18 05:38] VITALS: BP 129/83
== END 2019-05-18 05:30 | disposition home or self-care (01) ==
LOC: EDBD 14:15 → M ED 14:15
DX: F10.120 Alcohol abuse with intoxication, uncomplicated (principal); R00.0 Tachycardia, unspecified; R56.9 Unspecified convulsions; K92.2 Gastrointestinal hemorrhage, unspecified; F17.200 Nicotine dependence, unspecified, uncomplicated; Z79.899 Other long term (current) drug therapy
CPT/HCPCS: 80048; 80076; 80307; 84443; 84703; 85027; 96374; 96376; 99285; G0480; J2060

== ENCOUNTER 2019-05-21 20:24 | Emergency (ER) | payer OTHER ==
[~2019-05-21] VITALS: Ht 160 cm; Wt 65.9 kg
[2019-05-21] MEDS ORDERED: PROP10TA56 (20:38)
[2019-05-21 20:55] LABS: BASO # 0.1 10^3/uL (0.0-0.2); BASO % 0.6 % (0.0-1.0); EOS # 0.3 10^3/uL (0.0-0.5); HEMATOCRIT 35.6 % (36.0-47.0); HEMOGLOBIN 12.3 g/dl (12.0-15.5); LYMPH # 3.7 10^3/uL (1.5-5.0); LYMPH % 29.6 % (24.0-44.0); MEAN CORPUSCULAR HEMOGLOBIN 30.9 pg (27.0-33.0); MEAN CORPUSCULAR HGB CONC 34.6 g/dl (32.0-36.5); MEAN CORPUSCULAR VOLUME 89.4 fl (80.0-96.0); MONO # 0.6 10^3/uL (0.0-0.8); MONO % 4.8 % (0.0-5.0); NEUTROPHILS # 7.9 10^3/uL (1.5-8.5); NEUTROPHILS % 62.8 % (36.0-66.0); PLATELET COUNT, AUTOMATED 363 10^3/uL (150-450); RED BLOOD COUNT 3.98 10^6/uL (4.00-5.40); WHITE BLOOD COUNT 12.6 10^3/uL (4.0-10.0)
[2019-05-21 21:07] LABS: INR 0.89; PROTHROMBIN TIME 11.8 SECONDS (11.8-14.0)
[2019-05-21 21:29] LABS: ALBUMIN 3.7 GM/DL (3.2-5.2); ALT/SGPT 30 U/L (12-78); BILIRUBIN,DIRECT < 0.1 MG/DL (0.0-0.2); BILIRUBIN,TOTAL 0.3 MG/DL (0.2-1.0); BLOOD UREA NITROGEN 7 MG/DL (7-18); CARBON DIOXIDE LEVEL 25 MEQ/L (21-32); CHLORIDE LEVEL 105 MEQ/L (98-107); CK-MB VALUE MASS 1.1 NG/ML (<3.6); CPK CREATINE PHOSPHOKINASE 176 U/L (26-192); CREATININE FOR GFR 0.81 MG/DL (0.55-1.30); ETHYL ALCOHOL (ETHANOL) < 0.003 % (0.000-0.010); GLOMERULAR FILTRATION RATE > 60.0 (>60); GLUCOSE, FASTING 82 MG/DL (70-100); LIPASE 265 U/L (73-393); MB/CK RELATIVE INDEX 0.62 (< OR =4); SODIUM LEVEL 138 MEQ/L (136-145); TOTAL PROTEIN 6.9 GM/DL (6.4-8.2); TROPONIN I < 0.02 NG/ML (< 0.10)
[2019-05-21] MEDS ORDERED: ISOVUE-370 76% 100ML VIAL (Q9967) As Ordered ONE (22:30)
[2019-05-21 23:33] VITALS: BP 105/73
[2019-05-22] MEDS ORDERED: METAL LOCK LOOP XX ONE (00:19)
[2019-05-22] MEDS ORDERED: IBUPROFEN 600 MG TAB PO ONE (00:30)
--- NOTE | 2019-05-22 06:01 | ECGEPIP ---
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
--- NOTE | 2019-05-22 08:54 | REP ---
Portable chest x-ray: Single view. History: Chest pain. Comparison study: January 02, 2019. Findings: Monitoring electrodes overlie the chest. Oxygen delivery tubing is seen. The lungs are well inflated and clear. Pleural angles are sharp. Cardiomediastinal silhouette and bony thorax are unremarkable. Impression: Negative portable chest x-ray. Electronically Signed by Oc Knight MD 05/22/2019 08:45 A
== END 2019-05-22 00:48 | disposition home or self-care (01) ==
LOC: EDBD 20:24 → M ED 20:24
DX: F41.9 Anxiety disorder, unspecified (principal); R07.89 Other chest pain; F10.10 Alcohol abuse, uncomplicated; Z79.899 Other long term (current) drug therapy
CPT/HCPCS: 71045; 80048; 80076; 82550; 82553; 82803; 83690; 84484; 85025; 85610; 93005; 93041; 99285; G0480

== ENCOUNTER → 2019-10-12 | Outpatient (REF) | payer OTHER ==
[~2019-10-12] MED LIST changes: +PROP10TA56
== END ==
LOC: M SFHCLERA 12:20
PROVIDERS: ATTEND Nurse Practitioner Family
DX: R68.89 Other general symptoms and signs (principal)

== ENCOUNTER → 2019-10-12 | Outpatient (CLI) | payer OTHER ==
--- NOTE | 2019-10-12 14:00 | REP ---
REASON: Cough and fever. COMPARISON: Multiple, the latest 05/21/2019 portable exam. FINDINGS: The superior mediastinal structures are midline. The cardiac silhouette is unremarkable in size, shape, and position. The diaphragmatic surfaces of the lungs are regular, and the costophrenic angles are clear. The pulmonary [place] are clear. The imaged osseous structures are intact. IMPRESSION: There is no acute cardiopulmonary disease. Electronically Signed by Jordan Daniels DO 10/12/2019 02:23 P
== END ==
LOC: M LRY 12:24
PROVIDERS: ATTEND Nurse Practitioner Family
DX: Z03.818 Encounter for observation for suspected exposure to other biological agents ruled out (principal); R06.2 Wheezing; Z11.59 Encounter for screening for other viral diseases; R68.89 Other general symptoms and signs
CPT/HCPCS: 71046; 87804; 87880; G0463; U0003

== ENCOUNTER 2019-12-04 17:12 | Inpatient (IN) | payer OTHER ==
[~2019-12-04] VITALS: Ht 160 cm; Wt 68.5 kg
[~2019-12-04 17:12] MED LIST changes: -FLUTISP; +FLUTISP NARES; -PANT20TA2 PO; +PANT20TA6 PO; -PROP10TA56; +PROP10TA56 PO
[2019-12-04] MEDS ORDERED: GI COCKTAIL 50ML BTL(HYOSCYAMINE/MAALOX/LIDOCAINE VISCOUS)(1:3:1) PO ONE (17:30)
[2019-12-04] MEDS ORDERED: diphenhydrAMINE 50MG/ML VIAL (J1200) IM ONE (18:00)
[2019-12-04] MEDS ORDERED: HALOPERIDOL 5MG/ML VIAL (J1630 PER 1) IM ONE (18:00)
[2019-12-04] MEDS ORDERED: LORazepam 2 MG/ML VIAL IM ONE (18:00)
[2019-12-04 18:15] LABS: AMPHETAMINES LEVEL URINE NEGATIVE (NEGATIVE); BARBITURATES URINE NEGATIVE (NEGATIVE); BENZODIAZEPINES URINE NEGATIVE (NEGATIVE); CANNABINOIDS URINE NEGATIVE (NEGATIVE); COCAINE METABOLITE URINE NEGATIVE (NEGATIVE); METHADONE URINE NEGATIVE (NEGATIVE); OPIATES URINE NEGATIVE (NEGATIVE); PHENCYCLIDINE URINE NEGATIVE (NEGATIVE)
[2019-12-04 18:38] LABS: HEMATOCRIT 42.1 % (36.0-47.0); HEMOGLOBIN 14.6 g/dl (12.0-15.5); MEAN CORPUSCULAR HEMOGLOBIN 31.5 pg (27.0-33.0); MEAN CORPUSCULAR HGB CONC 34.7 g/dl (32.0-36.5); MEAN CORPUSCULAR VOLUME 90.9 fl (80.0-96.0); PLATELET COUNT, AUTOMATED 412 10^3/uL (150-450); RED BLOOD COUNT 4.63 10^6/uL (4.00-5.40); WHITE BLOOD COUNT 6.3 10^3/uL (4.0-10.0)
[2019-12-04 19:28] LABS: ACETAMINOPHEN LEVEL < 2.0 UG/ML (10.0-30.0); ALBUMIN 3.8 GM/DL (3.2-5.2); ALT/SGPT 55 U/L (12-78); BILIRUBIN,DIRECT 0.2 MG/DL (0.0-0.2); BILIRUBIN,TOTAL 0.3 MG/DL (0.2-1.0); BLOOD UREA NITROGEN 6 MG/DL (7-18); CALCIUM LEVEL 8.3 MG/DL (8.5-10.1); CARBON DIOXIDE LEVEL 25 MEQ/L (21-32); CHLORIDE LEVEL 106 MEQ/L (98-107); CPK CREATINE PHOSPHOKINASE 265 U/L (26-192); CREATININE FOR GFR 0.77 MG/DL (0.55-1.30); ETHYL ALCOHOL (ETHANOL) 0.338 % (0.000-0.010); GLOMERULAR FILTRATION RATE > 60.0 (>60); GLUCOSE, FASTING 105 MG/DL (70-100); POTASSIUM SERUM 3.9 MEQ/L (3.5-5.1); SALICYLATE LEVEL < 1.7 MG/DL (5.0-30.0); SODIUM LEVEL 143 MEQ/L (136-145); THYROID STIMULATING HORMONE 0.974 uIU/ML (0.358-3.740); TOTAL PROTEIN 7.4 GM/DL (6.4-8.2)
[2019-12-04] MEDS ORDERED: MULTIVITAMIN -ADULT INJECTION 10 ML, THIAMINE INJection 100 MG, FOLIC ACID 1 MG in NS 1... IV ONE (19:45)
[2019-12-05] MEDS: LORazepam 2 MG TAB PO PRN ×3 (05:12→22:34)
[2019-12-05] MEDS ORDERED: GABA800T4 PO (10:16)
[2019-12-05] MEDS ORDERED: BUSP15TA47 PO (10:16)
[2019-12-05] MEDS ORDERED: CITA40TA6 PO (10:26)
[2019-12-05] MEDS ORDERED: CitaloPRAM (CeleXA) 20 MG TAB PO ONE (23:45)
[2019-12-05] MEDS ORDERED: PROPRANOLOL 10 MG TAB PO ONE (23:45)
[2019-12-05] MEDS ORDERED: busPIRone 10 MG TAB PO ONE (23:45)
[2019-12-05] MEDS ORDERED: PANTOPRAZOLE 40MG TAB (PROTONIX) PO ONE (23:45)
[2019-12-05] MEDS ORDERED: GABAPENTIN 400 MG CAP PO ONE (23:45)
[2019-12-06] MEDS: LORazepam 2 MG TAB PO PRN ×2 (04:49→18:23)
--- NOTE | 2019-12-06 07:58 | ECGEPIP ---
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
[2019-12-06] MEDS ORDERED: ACETAMINOPHEN TAB 650MG DOSE (2X325MG) PO ONE (13:45)
[2019-12-06] MEDS ORDERED: PANTOPRAZOLE 20 MG TAB PO PRN (14:15)
[2019-12-06] MEDS ORDERED: MOM 30ML SUSPENSION UDC PO PRN (14:15)
[2019-12-06] MEDS ORDERED: FLUTICASONE PROP 0.05% NASAL SPRAY 16 GM (FLONASE) NARES PRN (14:15)
[2019-12-06] MEDS ORDERED: traZODone 50 MG TAB PO PRN (14:15)
[2019-12-06] MEDS ORDERED: MAALOX 30 ML SUSP *UDC PO PRN (14:15)
[2019-12-06] MEDS ORDERED: ACETAMINOPHEN TAB 650MG DOSE (2X325MG) PO PRN (14:15)
[2019-12-06] MEDS: FOLIC ACID 1 MG TAB PO SCH (15:29)
[2019-12-06] MEDS: OLANZapine ORAL DISINTEGRATING TAB 5MG PO PRN (15:29)
[2019-12-06] MEDS: THIAMINE 100 MG TAB PO SCH ×2 (15:29→20:16)
[2019-12-06] MEDS: MULTIVITAMINS/MINERALS THERAP 1 TAB PO SCH (15:30)
[2019-12-06 16:26] VITALS: BP 144/87
[2019-12-06] MEDS: GABAPENTIN 400 MG CAP PO SCH ×2 (17:43→20:16)
[2019-12-06 18:36] VITALS: BP 140/100
[2019-12-06 19:30] VITALS: BP 133/85
[2019-12-06] MEDS: PROPRANOLOL 10 MG TAB PO SCH (20:16)
[2019-12-06] MEDS: busPIRone 5 MG TAB PO SCH (20:17)
[2019-12-07] VITALS (9 sets, daily range): BP systolic 118–160; BP diastolic 64–103
[2019-12-07] MEDS: OLANZapine ORAL DISINTEGRATING TAB 5MG PO PRN (00:12)
[2019-12-07] MEDS: THIAMINE 100 MG TAB PO SCH ×2 (08:45→20:55)
[2019-12-07] MEDS: MULTIVITAMINS/MINERALS THERAP 1 TAB PO SCH (08:45)
[2019-12-07] MEDS: busPIRone 5 MG TAB PO SCH (08:45)
[2019-12-07] MEDS: GABAPENTIN 400 MG CAP PO SCH ×4 (08:45→20:54)
[2019-12-07] MEDS: FOLIC ACID 1 MG TAB PO SCH (08:45)
[2019-12-07] MEDS: LORazepam 2 MG TAB PO PRN ×3 (08:45→20:55)
[2019-12-07] MEDS: PROPRANOLOL 10 MG TAB PO SCH ×2 (08:46→20:55)
[2019-12-07] MEDS ORDERED: busPIRone 10 MG TAB PO SCH (08:55)
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
--- NOTE | 2019-12-07 18:35 | HPEPDOC ---
General Date of Admission Dec 06, 2019 at 14:14 Date of Service: Dec 07, 2019 Chief Complaint The patient is a 39-year-old female admitted with a reason for visit of Unspecified Depressive Do. History of Present Illness Patient is 39 years old female with past medical history of alcohol abuse presented to the hospital after suicidal ideation. Patient stated that she drank alcohol continuously for past 11 days and ended up with suicidal ideation. Patient stated she had multiple rehabilitation admissions for alcohol abuse. Patient denied fever, chills, nausea, vomiting, diarrhea or dysuria Home Medications Scheduled Buspirone HCl (Buspirone HCl) 15 Mg Tablet, 30 MG PO BID, (Reported) Citalopram Hydrobromide (Citalopram HBr) 40 Mg Tablet, 40 MG PO DAILY, (Reported) Gabapentin (Gabapentin) 800 Mg Tablet, 800 MG PO QID, (Reported) Propranolol HCl (Propranolol HCl) 10 Mg Tablet, 10 MG PO BID, (Reported) Scheduled PRN Fluticasone Propionate (Fluticasone Propionate) 50 Mcg/Act Spr, 2 SPRAY NARES DAILY PRN for CONGESTION, (Reported) Pantoprazole Sodium (Pantoprazole Sodium) 20 Mg Tablet.dr, 20 MG PO BID PRN for HEARTBURN/INDIGESTION, (Reported) Allergies Coded Allergies: No Known Allergies (Unverified , 10/26/18) Past Medical History Medical History EtOH abuse Family History Both parents alcoholics Social History * Smoker: current smoker Alcohol: heavy Drugs: denies A-FIB/CHADSVASC A-FIB History Current/History of A-Fib/PAF?: No Current PO Anticoag Therapy: No Review of Systems Constitutional: Denies: Chills, Fever Eyes: Denies: Pain, Vision change Skin: Denies: Rash Pulmonary: Denies: Cough Cardiovascular: Denies: Chest Pain Gastrointestinal: Denies: Vomiting Genitourinary: Denies: Dysuria Hematologic: Denies: Bruising Endocrine: Denies: Polydipsia Musculoskeletal: Denies: Neck Pain Neurological: Denies: Weakness Psych: Reports: Depression Physical Examination General Exam: Positive: Alert, Cooperative Eye Exam: Positive: PERRLA Neck Exam: Positive: Supple Chest Exam: Positive: Clear to auscultation Heart Exam: Positive: Rate Normal Telemetry: Positive: No significant arrhythmia Abdomen Exam: Positive: Normal bowel sounds Extremity Exam: Negative: Clubbing, Cyanosis Skin Exam: Positive: Nl turgor and temperature Neuro Exam: Positive: Normal Gait, Strength at 5/5 X4 ext Psych Exam: Positive: Mental status NL Vital Signs Vital Signs Date Time Temp Pulse Resp B/P (MAP) Pulse Ox O2 Delivery O2 Flow Rate FiO2 12/07/19 17:05 97.0 92 16 136/92 (107) 12/07/19 06:38 Room Air 12/06/19 16:26 100 12/05/19 01:11 2.0 Assessment/Plan Patient is 39 years old female with past medical history of alcohol abuse presented to the hospital after suicidal ideation. Patient stated that she drank alcohol continuously for past 11 days and ended up with suicidal ideation. Patient stated she had multiple rehabilitation admissions for alcohol abuse. Patient denied fever, chills, nausea, vomiting, diarrhea or dysuria Problems (1) Depression with suicidal ideation Status: Acute Problem Text: Defer treatment to psych team Plan / VTE VTE Prophylaxis Ordered?: No VTE Exclusion Mechanical Proph: Low Risk for VTE CHARAN STALLWORTH DO Dec 07, 2019 18:35
[2019-12-07] MEDS ORDERED: traZODone 100 MG TAB PO PRN (20:30)
[2019-12-07] MEDS: busPIRone 10 MG TAB PO SCH (20:55)
[2019-12-08 06:39] VITALS: BP 142/86
--- NOTE | 2019-12-08 08:00 | MHDSPDOC ---
[facility] Discharge Summary Discharge Summary DATE OF ADMISSION: Dec 06, 2019 at 14:14 DATE OF DISCHARGE: Dec 08, 2019 at 10:55 DISCHARGE DIAGNOSES: F43.20 Adjustment disorder, unspecified F10.11 Alcohol abuse, in remission CONSULTANTS INVOLVED:[ None (basic hospitalist screening)] REASON FOR ADMISSION & TREATMENT AND PROGRESS ON THE UNIT : Chayo was admitted to the inpatient mental health unit after becoming severely intoxicated, making suicidal statements. She was subsequently admitted, where she did require some medications for alcohol withdrawal, but resolved spontaneously. She reports that she had relapsed on alcohol, becoming fairly upset and distorted as she has done before. The patient was retained for 48 hours for observation where she made no suicidal or homicidal statements and was generally euthymic without any issue. She was resumed on her home meds. Although we discussed options such as Disulfiram and Naltrexone, the patient was pretty contemplative about it. She is well-known to have a significant alcohol problem and is a chronic relapser. She did well in the unit and was fairly engaged as is her baseline. DISCHARGE ASSESSMENT[improved] Legal status considerations: The patient at the time of discharge did not meet criteria for involuntary admission/extension due to having a [normal] mental status exam, [fair] insight into the situation, They are engaged in the discharge process, as well as being friendly and amenable in behavioral control and havent been engaging in any observed concerning behavior or ideation recently. They decline voluntary extension/admission at this time and must be discharged in good omid, as Im unable to make a case for holding the patient against their will. They may have historical risk factors of admissions and other interactions with psychiatry however, those are not modifiable from a clinical perspective. The patient will need to be discharged in good omid. MENTAL STATUS EXAMINATION ON DISCHARGE: [General: Well dressed with good hygiene Speech: Spontaneous and fluid Thought processes: Linear and logical Thought content: Future orientated Abstract reasoning, and computation: Intact Description of associations: Intact Description of abnormal or psychotic thoughts:Denies any suicidal or homicidal ideation. Denies any auditory or visual hallucinations. Does not appear to be responding to internal stimuli. Does not appear to be endorsing any bizarre or paranoid ideation. Judgment: fair Insight: fair Orientation: Alert and orientated 3 Recent and remote memory: Intact Attention span and concentration: Intact Fund of knowledge: Adequate Mood: "okay" Affect: Euthymic with a full range] PLAN/FOLLOWUP ARRANGEMENTS: Follow up appointments made (PCP and MH in 5 days of D/C date) and safety plan completed. Safety Planning aspects completed prior to discharge [Medication supplies limited to 7 days with 4 refills to prevent accumulation to OD] [Family contact completed, educated on safe practices, instructed on removal and mitigation of dangerous means] [RN reviewed crisis hotline information and other aspects to empower patient to access care in interim before next appointment.] The amount of time spent in the coordination of care for this patient was approximately 30 minutes. Vital Signs/I&Os Vital Signs Date Time Temp Pulse Resp B/P (MAP) Pulse Ox O2 Delivery O2 Flow Rate FiO2 12/08/19 06:39 97.7 92 16 142/86 (104) 12/07/19 06:38 Room Air 12/06/19 16:26 100 12/05/19 01:11 2.0 Medications Scheduled Buspirone HCl (Buspirone HCl) 15 Mg Tablet, 30 MG PO BID, (Reported) Citalopram Hydrobromide (Citalopram HBr) 40 Mg Tablet, 40 MG PO DAILY, (Reported) Gabapentin (Gabapentin) 800 Mg Tablet, 800 MG PO QID, (Reported) Propranolol HCl (Propranolol HCl) 10 Mg Tablet, 10 MG PO BID, (Reported) Scheduled PRN Fluticasone Propionate (Fluticasone Propionate) 50 Mcg/Act Spr, 2 SPRAY NARES DAILY PRN for CONGESTION, (Reported) Pantoprazole Sodium (Pantoprazole Sodium) 20 Mg Tablet.dr, 20 MG PO BID PRN for HEARTBURN/INDIGESTION, (Reported) Allergies Coded Allergies: No Known Allergies (Unverified , 10/26/18) TIARA JOSHI DO Dec 08, 2019 08:00
[2019-12-08] MEDS: busPIRone 10 MG TAB PO SCH (08:13)
[2019-12-08] MEDS: THIAMINE 100 MG TAB PO SCH (08:13)
[2019-12-08] MEDS: GABAPENTIN 400 MG CAP PO SCH (08:13)
[2019-12-08] MEDS: FOLIC ACID 1 MG TAB PO SCH (08:13)
[2019-12-08 08:14] VITALS: BP 165/101
[2019-12-08] MEDS: PROPRANOLOL 10 MG TAB PO SCH (08:14)
[2019-12-08] MEDS: MULTIVITAMINS/MINERALS THERAP 1 TAB PO SCH (08:14)
== END 2019-12-08 10:55 | disposition home or self-care (01) | DRG 882 ==
LOC: EDBD 17:12 → M ED 17:12 → M ED INP 12-06 14:14 → M PSY 12-06 16:14
PROVIDERS: ADMIT Psychiatry & Neurology Addiction Medicine; ATTEND Psychiatry & Neurology Addiction Medicine
DX: F43.20 Adjustment disorder, unspecified (principal); F10.11 Alcohol abuse, in remission; Z79.899 Other long term (current) drug therapy; F17.200 Nicotine dependence, unspecified, uncomplicated

== ENCOUNTER 2020-03-18 20:42 | Inpatient (IN) | payer OTHER ==
[~2020-03-18] VITALS: Ht 160 cm; Wt 65.9 kg
[~2020-03-18 20:42] MED LIST changes: +BUSP15TA47 PO; +CITA40TA6 PO; +GABA800T4 PO
[2020-03-18] MEDS ORDERED: HALOPERIDOL 5MG/ML VIAL (J1630 PER 1) As Ordered ONE (21:11)
[2020-03-18] MEDS ORDERED: LORazepam 2 MG/ML VIAL IM ONE (21:15)
[2020-03-18] MEDS ORDERED: HALOPERIDOL 5MG/ML VIAL (J1630 PER 1) IM ONE (21:15)
[2020-03-18] MEDS ORDERED: diphenhydrAMINE 50MG/ML VIAL (J1200) IM ONE (21:15)
[2020-03-18 21:22] LABS: HEMATOCRIT 41.7 % (36.0-47.0); HEMOGLOBIN 13.7 g/dl (12.0-15.5); MEAN CORPUSCULAR HEMOGLOBIN 30.6 pg (27.0-33.0); MEAN CORPUSCULAR HGB CONC 32.9 g/dl (32.0-36.5); MEAN CORPUSCULAR VOLUME 93.3 fl (80.0-96.0); PLATELET COUNT, AUTOMATED 466 10^3/uL (150-450); RED BLOOD COUNT 4.47 10^6/uL (4.00-5.40); WHITE BLOOD COUNT 11.5 10^3/uL (4.0-10.0)
[2020-03-18 21:52] LABS: AMPHETAMINES LEVEL URINE NEGATIVE (NEGATIVE); BARBITURATES URINE NEGATIVE (NEGATIVE); BENZODIAZEPINES URINE NEGATIVE (NEGATIVE); CANNABINOIDS URINE NEGATIVE (NEGATIVE); COCAINE METABOLITE URINE NEGATIVE (NEGATIVE); METHADONE URINE NEGATIVE (NEGATIVE); OPIATES URINE NEGATIVE (NEGATIVE); PHENCYCLIDINE URINE NEGATIVE (NEGATIVE)
[2020-03-18 21:53] LABS: HCG, SERUM QUALITATIVE NEGATIVE (NEGATIVE)
[2020-03-18 22:13] LABS: ACETAMINOPHEN LEVEL < 2.0 UG/ML (10.0-30.0); ALBUMIN 4.2 GM/DL (3.2-5.2); ALT/SGPT 22 U/L (12-78); BILIRUBIN,DIRECT < 0.1 MG/DL (0.0-0.2); BILIRUBIN,TOTAL 0.1 MG/DL (0.2-1.0); BLOOD UREA NITROGEN 9 MG/DL (7-18); CARBON DIOXIDE LEVEL 24 MEQ/L (21-32); CHLORIDE LEVEL 106 MEQ/L (98-107); ETHYL ALCOHOL (ETHANOL) 0.209 % (0.000-0.010); GLOMERULAR FILTRATION RATE > 60.0 (>60); GLUCOSE, FASTING 103 MG/DL (70-100); POTASSIUM SERUM 3.8 MEQ/L (3.5-5.1); SALICYLATE LEVEL 2.6 MG/DL (5.0-30.0); SODIUM LEVEL 141 MEQ/L (136-145); TOTAL PROTEIN 7.8 GM/DL (6.4-8.2)
[2020-03-19] MEDS ORDERED: busPIRone 5 MG TAB PO ONE (08:15)
[2020-03-19] MEDS ORDERED: PROPRANOLOL 10 MG TAB PO ONE (08:15)
[2020-03-19] MEDS ORDERED: busPIRone 10 MG TAB PO ONE (08:30)
[2020-03-19] MEDS ORDERED: GABAPENTIN 400 MG CAP PO ONE (09:00)
[2020-03-19] MEDS ORDERED: FLUTICASONE HFA 220 MCG 12 GM INHALER (FLOVENT) INH PRN (15:15)
[2020-03-19] MEDS ORDERED: LORazepam 2 MG TAB PO PRN (15:15)
[2020-03-19] MEDS ORDERED: PANTOPRAZOLE 20 MG TAB PO PRN (15:15)
[2020-03-19] MEDS ORDERED: MAALOX 30 ML SUSP *UDC PO PRN (15:15)
[2020-03-19] MEDS ORDERED: MOM 30ML SUSPENSION UDC PO PRN (15:15)
[2020-03-19] MEDS ORDERED: IBUPROFEN 400 MG TAB PO PRN (15:15)
[2020-03-19] MEDS ORDERED: haloperidoL 5 MG TAB PO PRN (15:15)
[2020-03-19 16:41] VITALS: BP 136/81
[2020-03-19] MEDS: FOLIC ACID 1 MG TAB PO SCH (18:10)
[2020-03-19] MEDS: MULTIVITAMINS/MINERALS THERAP 1 TAB PO SCH (18:10)
[2020-03-19] MEDS: GABAPENTIN 400 MG CAP PO SCH ×2 (18:10→20:21)
[2020-03-19] MEDS: THIAMINE 100 MG TAB PO SCH (20:21)
[2020-03-19] MEDS: CitaloPRAM (CeleXA) 20 MG TAB PO SCH (20:21)
[2020-03-19] MEDS: busPIRone 10 MG TAB PO SCH (20:21)
[2020-03-19] MEDS: PROPRANOLOL 10 MG TAB PO SCH (20:22)
[2020-03-19] MEDS: traZODone 50 MG TAB PO PRN (20:22)
[2020-03-19 22:03] VITALS: BP 167/94
[2020-03-20 06:43] VITALS: BP 128/77
[2020-03-20] MEDS: THIAMINE 100 MG TAB PO SCH ×2 (08:06→21:20)
[2020-03-20] MEDS: MULTIVITAMINS/MINERALS THERAP 1 TAB PO SCH (08:06)
[2020-03-20] MEDS: busPIRone 10 MG TAB PO SCH ×2 (08:06→21:20)
[2020-03-20] MEDS: FOLIC ACID 1 MG TAB PO SCH (08:06)
[2020-03-20] MEDS: GABAPENTIN 400 MG CAP PO SCH ×4 (08:06→21:20)
[2020-03-20] MEDS: PROPRANOLOL 10 MG TAB PO SCH ×2 (08:06→21:19)
--- NOTE | 2020-03-20 10:22 | MHHPEPDOC ---
[facility] History & Physical History and Physical DATE OF ADMISSION: Mar 19, 2020 at 15:02 HPI: Chayo presents today for alcohol use disorder. She got drunk, and felt very depressed. Patient notes that alcohol changes her personality completely. Patient denies suicidal ideation. She reports that she hasn't had any symptoms prior other than some mild stress, where she was admitted. Screens negative again for psychotic and bipolar symptoms. MEDICATIONS: She is currently taking Gabapentin, Buspirone, Celexa, Propranolol, and Antabuse. She has Vivitrol but has not tried it yet. MEDICAL HISTORY: [facility]. She is getting her treatment from [facility] right now. FAMILY HISTORY: No major changes in family history of mental health, or new diagnosis. Objective Appearance: Well groomed. Well nourished. Appears to be stated age. Behavior: Cooperative with good eye contact. Engaged. Pleasant. Affect: Appropriate to context. Full range. Mood: Generally good. Appropriately reactive. Euthymic. Speech: Normal volume. Normal rate. Spontaneous and Fluid. Motor: No gross motor abnormalities. Cognition: Alert, Attentive, and Oriented to person, place, time. Memory: No gross abnormalities of short or salvage determiner memory noted during interview. No formal testing. Thought Form: Linear and goal directed. Thought Content: No thoughts of self harm. No evidence of aggressive or homicidal ideation. No evidence of delusions. No evidence of suicidal ideation. Perception: No perceptual abnormalities noted. Judgement: Intact as evidenced by decision making in the recent past. Insight: Good insight into symptoms and treatment options. Assessment F10.14 Alcohol abuse with alcohol-induced mood disorder Plan There is a risk for suicide. Observe overnight. See about getting Vivitrol injections. Estimated length of stay is 1-2 days. Vital Signs Vital Signs Date Time Temp Pulse Resp B/P (MAP) Pulse Ox O2 Delivery O2 Flow Rate FiO2 03/20/20 08:06 83 128/77 03/20/20 06:43 96.9 12 Room Air 03/19/20 16:41 96 Medications Scheduled Buspirone HCl (Buspirone HCl) 15 Mg Tablet, 30 MG PO BID, (Reported) Citalopram Hydrobromide (Citalopram HBr) 40 Mg Tablet, 40 MG PO QHS, (Reported) Gabapentin (Gabapentin) 800 Mg Tablet, 800 MG PO QID, (Reported) Propranolol HCl (Propranolol HCl) 10 Mg Tablet, 10 MG PO BID, (Reported) Scheduled PRN Fluticasone Propionate (Fluticasone Propionate) 50 Mcg/Act Spr, 2 SPRAY NARES DAILY PRN for CONGESTION, (Reported) Pantoprazole Sodium (Pantoprazole Sodium) 20 Mg Tablet.dr, 20 MG PO BID PRN for HEARTBURN/INDIGESTION, (Reported) Allergies Coded Allergies: No Known Allergies (Unverified , 10/26/18) TIARA JOSHI DO Mar 20, 2020 10:22
[2020-03-20] MEDS: NICOTINE 21MG/24HR 1 EA TRANSDERMAL TD SCH (10:29)
--- NOTE | 2020-03-20 14:40 | HPEPDOC ---
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 ER after being escorted by police. The patient had homicidal ideation and attempted to cut herself at home with a knife. She called a suicide hotline and please respond to the home. The patient states that she is not depressed when she is not drinking but when she drinks she has increased thoughts of hurting herself, increased tearfulness increase hopelessness. The patient has had this happen in the past and was admitted to inpatient mental health for it. She follows with a mental health counselor and psychiatrist as outpatient. She states her alcohol abuse has increased over the past several months. She denies substance abuse. REVIEW OF SYSTEMS: CONSTITUTIONAL: Denies lack of energy, unexplained weight gain or weight loss, loss of appetite, fever, night sweats EYES: Denies eye drainage, eye pain, visual changes, dry/irritated eye EARS, NOSE, MOUTH, THROAT: Denies difficulty hearing, ringing in ears, mouth sores, loose teeth, sore throat, facial numbness or pain NECK: Denies swollen glands CARDIOVASCULAR: Denies irregular heartbeat, racing heart, chest pains, swelling of feet or legs, pain in legs with walking RESPIRATORY: Denies shortness of breath, night sweats, wheezing, sputum production, oxygen at home, coughing up blood, cough lasting > 1 month GASTROINTESTINAL: Denies abdominal pain, constipation, bloody stool, diarrhea, heartburn, nausea, vomiting GENITOURINARY: Denies painful urination, bloody urine, frequent urination, urgency, leaking urine, impotence MUSCULOSKELETAL: Denies joint pain, muscle pain, leg swelling INTEGUMENTARY: Denies rash, itching, new skin lesion, change in existing skin lesion, hair loss or increase, breast changes. NEUROLOGICAL: Denies headaches, dizziness, difficulty walking, numbness or tingling PSYCHIATRIC: Denies mood swings, hallucinations PAST MEDICAL HISTORY: Depression Anxiety Alcohol abuse OCD PTSD Hypoglycemia PAST SURGICAL HISTORY: cholecystectomy appendectomy FAMILY HISTORY: father: alcohol abuse. Alive mother: alcohol abuse. Alive paternal grandfather. ALS, at unknown age SOCIAL HISTORY: 1 PPD for 4 years. Denies drug use. Alcohol abuse, binge drinker. Lives with on [place] ALLERGIES: Please see below. HOME MEDICATIONS: Please see below. PHYSICAL EXAMINATION: VS: Please see below CONSTITUTIONAL: No acute distress, resting comfortably, AAO x 3 EYES: PERRLA, EOM intact HENT, MOUTH: Normocephalic, atraumatic, moist mucous membranes, NECK: SUPPLE, no JVD, no lymphadenopathy, no carotid bruit CV: Regular rate and rhythm, S1S2 normal, no murmurs/rubs/gallops RESPIRATORY: Clear to auscultation bilaterally, no rales/rhonchi/wheezes GI: BS positive in 4 quadrants, soft, nontender, nondistended, no rebound or guarding, no organomegaly : Deferred MUSCULOSKELETAL: Normal ROM. No cyanosis, clubbing, swelling, joint deformity, extremity edema INTEGUMENTARY: Intact, no rashes, no lesions, no erythema NEUROLOGIC: Cranial Nerves II-XII are intact, no focal deficits PSYCHIATRIC: Mood and affect are normal LABORATORY DATA: Please see below IMAGING: none ASSESSMENT: 39 y/o F admitted for unspecified depressive disorder, suicide attempt. PLAN: 1. Unspecified depressive disorder, suicide attempt. Plan as per psychiatry team. 2. Anxiety/OCD/PTSD. Plan as per psychiatry team. 3. Alcohol abuse. Monitor for s/s of withdrawl. DISPOSITION: Thank you kindly for this consult. At this time her chronic medical issues are stable outside of her psychiatric illness. We will sign off but if we are needed again, please let us know. Vital Signs Vital Signs Date Time Temp Pulse Resp B/P (MAP) Pulse Ox O2 Delivery O2 Flow Rate FiO2 03/20/20 08:06 83 128/77 03/20/20 06:43 96.9 12 Room Air 03/19/20 16:41 96 Home Medications Scheduled Buspirone HCl (Buspirone HCl) 15 Mg Tablet, 30 MG PO BID Citalopram Hydrobromide (Citalopram HBr) 40 Mg Tablet, 40 MG PO QHS Gabapentin (Gabapentin) 800 Mg Tablet, 800 MG PO QID Propranolol HCl (Propranolol HCl) 10 Mg Tablet, 10 MG PO BID Scheduled PRN Fluticasone Propionate (Fluticasone Propionate) 50 Mcg/Act Spr, 2 SPRAY NARES DAILY PRN for CONGESTION Pantoprazole Sodium (Pantoprazole Sodium) 20 Mg Tablet.dr, 20 MG PO BID PRN for HEARTBURN/INDIGESTION Allergies Coded Allergies: No Known Allergies (Unverified , 10/26/18) A-FIB/CHADSVASC A-FIB History Current/History of A-Fib/PAF?: No Current PO Anticoag Therapy: No Age/Risk Factor Scoring CHADSVASC: CHADSVASC Response (Comments) Value Age Risk Factor Age < 65 years old 0 Gender Risk Factor Female 1 Hx of CHF No 0 Hx of HTN No 0 Hx of Stroke/TIA/or VTE No 0 Hx of Diabetes No 0 Hx of Vascular Disease No 0 Total 1 Treatment Treatment ordered: NONE Other anticoagulant ordered: none Temi Damon MD Mar 20, 2020 14:40
[2020-03-20 17:51] VITALS: BP 139/90
[2020-03-20] MEDS: CitaloPRAM (CeleXA) 20 MG TAB PO SCH (21:21)
[2020-03-20 21:47] VITALS: BP 132/72
[2020-03-20] MEDS: traZODone 50 MG TAB PO PRN (21:49)
[2020-03-21 06:45] VITALS: BP 149/73
[2020-03-21 06:49] VITALS: BP 149/73
[2020-03-21] MEDS: NICOTINE 21MG/24HR 1 EA TRANSDERMAL TD SCH (08:56)
[2020-03-21] MEDS: MULTIVITAMINS/MINERALS THERAP 1 TAB PO SCH (08:57)
[2020-03-21] MEDS: busPIRone 10 MG TAB PO SCH (08:57)
[2020-03-21] MEDS: THIAMINE 100 MG TAB PO SCH (08:57)
[2020-03-21 08:59] VITALS: BP 121/76
[2020-03-21] MEDS: FOLIC ACID 1 MG TAB PO SCH (08:59)
[2020-03-21] MEDS: PROPRANOLOL 10 MG TAB PO SCH (08:59)
[2020-03-21] MEDS: GABAPENTIN 400 MG CAP PO SCH ×2 (08:59→12:04)
--- NOTE | 2020-03-21 10:38 | MHDSPDOC ---
[facility] Discharge Summary Discharge Summary DATE OF ADMISSION: Mar 19, 2020 at 15:02 DATE OF DISCHARGE: Mar 21, 2020 at 12:48 DISCHARGE DIAGNOSES: F33.9 Major depressive disorder, recurrent, unspecified F10.10 Alcohol abuse, uncomplicated CONSULTANTS INVOLVED:[ None (basic hospitalist screening)] REASON FOR ADMISSION & TREATMENT AND PROGRESS ON THE UNIT : Chayo was admitted to the inpatient mental health unit. She did generally well and on observation, returned to her normal status which appeared highly consistent with her alcohol problems. She was observed for 40 hours in which she made no concerning behaviors. Otherwise, patient was triaged for discharge. MEDICATIONS: She was resumed on all medications, including Citalopram Buspar. DISCHARGE ASSESSMENT[improved] Legal status considerations: The patient at the time of discharge did not meet criteria for involuntary admission/extension due to having a [normal] mental status exam, [fair] insight into the situation, They are engaged in the discharge process, as well as being friendly and amenable in behavioral control and havent been engaging in any observed concerning behavior or ideation recently. They decline voluntary extension/admission at this time and must be discharged in good omid, as Im unable to make a case for holding the patient against their will. They may have historical risk factors of admissions and other interactions with psychiatry however, those are not modifiable from a clinical perspective. The patient will need to be discharged in good omid. MENTAL STATUS EXAMINATION ON DISCHARGE: [General: Well dressed with good hygiene Speech: Spontaneous and fluid Thought processes: Linear and logical Thought content: Future orientated Abstract reasoning, and computation: Intact Description of associations: Intact Description of abnormal or psychotic thoughts:Denies any suicidal or homicidal ideation. Denies any auditory or visual hallucinations. Does not appear to be responding to internal stimuli. Does not appear to be endorsing any bizarre or paranoid ideation. Judgment: fair Insight: fair Orientation: Alert and orientated 3 Recent and remote memory: Intact Attention span and concentration: Intact Fund of knowledge: Adequate Mood: "okay" Affect: Euthymic with a full range] PLAN/FOLLOWUP ARRANGEMENTS: Follow up appointments made (PCP and MH in 5 days of D/C date) and safety plan completed. Safety Planning aspects completed prior to discharge Offered addiction medications [RN reviewed crisis hotline information and other aspects to empower patient to access care in interim before next appointment.] The amount of time spent in the coordination of care for this patient was approximately 30 minutes. Vital Signs/I&Os Vital Signs Date Time Temp Pulse Resp B/P (MAP) Pulse Ox O2 Delivery O2 Flow Rate FiO2 03/21/20 08:59 72 121/76 03/21/20 06:49 97.7 18 96 Room Air Medications Scheduled Buspirone HCl (Buspirone HCl) 15 Mg Tablet, 30 MG PO BID, (Reported) Citalopram Hydrobromide (Citalopram HBr) 40 Mg Tablet, 40 MG PO QHS, (Reported) Gabapentin (Gabapentin) 800 Mg Tablet, 800 MG PO QID, (Reported) Nicotine (Nicotine Patch) 21 Mg Patch.td24, 1 PATCH TD DAILY for tobacco for 30 Days, #30 Propranolol HCl (Propranolol HCl) 10 Mg Tablet, 10 MG PO BID, (Reported) Scheduled PRN Fluticasone Propionate (Fluticasone Propionate) 50 Mcg/Act Spr, 2 SPRAY NARES DAILY PRN for CONGESTION, (Reported) Pantoprazole Sodium (Pantoprazole Sodium) 20 Mg Tablet.dr, 20 MG PO BID PRN for HEARTBURN/INDIGESTION, (Reported) Allergies Coded Allergies: No Known Allergies (Unverified , 10/26/18) TIARA JOSHI DO Mar 21, 2020 10:38
[2020-03-21] MEDS ORDERED: NICO21PAT TD (10:56)
== END 2020-03-21 12:48 | disposition home or self-care (01) | DRG 885 ==
LOC: EDBD 20:42 → M ED 20:42 → M ED INP 03-19 15:02 → M PSY 03-19 16:40
PROVIDERS: ADMIT Psychiatry & Neurology Addiction Medicine; ATTEND Psychiatry & Neurology Addiction Medicine
DX: F33.9 Major depressive disorder, recurrent, unspecified (principal); F10.14 Alcohol abuse with alcohol-induced mood disorder; F17.210 Nicotine dependence, cigarettes, uncomplicated; Z79.899 Other long term (current) drug therapy